=== PATIENT | male | born 1970 | race Caucasian/White ===

== ENCOUNTER 2024-07-23 22:29 | Emergency (ER) | payer SELFPAY ==
--- OUTSIDE RECORDS SUMMARY | 2024-07-23 22:33 | XMS REPORT | Continuity of Care Document ---
Author Name Unknown Address [address] [facility] [address] [place] [address] [facility] Address [address] [facility] [address] [place] [address] Care Team Providers Care Emergency Planning And Response Manager Name Role Phone PCP, PATIENT DOES NOT HAVE A Primary Care Physic pam Unavailable Trey Carrasco Attending Clinician Unavaila Rose Marie Cai Attending Clinician UnavailFUAD Luz Attending Clinician UnavailSharmaine Hooker Attending Clinician [phone] Dina Robison MD Attending Clinician [phone] Fuad Hurtado MD Attending Clinician Pedro Cortez Admitting Clinician UnavailPaulino Estrada Admitting Clinician Unavailable SHARMAINE HURLEY Admitting Clinician Unavailable FUAD HURTADO Admitting Clinician Unavailpadmini [place] Payers Payer Name Policy Type Policy Number Effective Date Expirati on Date Source [employer] PPO [id number] 2022 00:00:00 Allergies, Adverse Reactions, Alerts Allergy Name Allergy Type Status Severity Reaction(s) Onset Date Inactive Date Treating Clinician Comments Source No Known Allergie s DA Active U 04-10 00:00: 00 [facility] NO KNOWN ALLERGIE S Drug Class Active [facility] Social History Social Habit Start Date Stop Date Quantity Comments Source Gender identity [facility] Sexual orientation U [facility] Exposure to SARS-CoV-2 (event) 2023-01-24 00:00:00 2023-02-03 19:20:00 Not sure [facility] Sex Assigned At 1970 00:00:00 1970 00:00:00 [facility] Smoking Status Start Date Stop Date Source Tobacco smoking consumption unknown [facility] Medications Ordered Medication Name Filled Medication Name Start Date Stop Date Current Medication? Ordering Clinician Indication Dosage Frequency Signature (SIG) Comments Components Source morpHINE (4 mg/mL) injection 4 mg 04-10 05:00: 00 04-10 04:06 :00 No 4mg 4 mg, Slow IV Push, ONCE, 1 dose, On Mon04/10/23 at 0000, STAT [facility] FENTanyl PF (SUBLIMAZE (PF)) injection 50 mcg 04-10 05:00: 00 04-10 05:00 :00 No 50ug 50 mcg, Slow IV Push, ONCE, 1 dose, On Mon04/10/23 at 0000, KARSTEN [facility] HYDROcodone -acetaminop hen (NORCO) 10-325 mg tablet 1 tablet 04-10 00:45: 00 04-10 02:31 :00 No 1{tbl} 1 tablet, Oral, ONCE NOW, 1 dose, On Mon04/09/23 at 1945, Routine [facility] iopamidol (ISOVUE 370-500 mL) injection 70 mL 04-10 00:00: 00 04-10 00:00 :00 No [id number] 70mL 70 mL, Intravenou s, ONCE, 1 dose, On Mon04/09/23 at 1900, Routine [facility] vancomycin (VANCOCIN) 1,000 mg in NaCl 0.9% (NS) 250 mL VIAL-MATE IV piggyback 04-09 23:00: 00 04-10 03:30 :00 No 15mg/kg 1,000 mg (rounded from 1,089 mg = 15 mg/kg ?72.6 kg), IV Piggyback, ONCE, 1 dose, On Mon04/09/23 at 1800, Administer over 60 Minutes, 250 mL
Reas on for Anti-Infec tive: Empiric Therapy for Suspected Infection< br>Empiric Therapy Site: Skin / Soft tissue
Duration of therapy: 72 hours [facility] NaCl 0.9% (NS) bolus infusion 2,178 mL 04-09 23:00: 00 04-09 23:59 :00 No 30mL/kg at 999 mL/hr, 2,178 mL (30 mL/kg ?72.6 kg), IV Infusion, ONCE, 1 dose, On Mon04/09/23 at 1800, [facility] piperacilli n-tazobacta m (ZOSYN) 3.375 g in NaCl 0.9% (NS) 100 mL MINI-BAG 04-09 22:15: 00 04-09 23:59 :00 No 3.375g 3.375 g, IV Piggyback, ONCE, 1 dose, On Mon04/09/23 at 1715, Administer over 30 Minutes, 100 mL
Reas on for Anti-Infec tive: Empiric Therapy for Suspected Infection< br>Empiric Therapy Site: Skin / Soft tissue
Duration of therapy: 72 hours [facility] ondansetron (ZOFRAN (PF)) injection 4 mg 04-09 22:15: 00 04-09 22:15 :00 No 4mg 4 mg, Slow IV Push, ONCE, 1 dose, On Mon04/09/23 at 1715, KARSTEN [facility] morpHINE (4 mg/mL) injection 4 mg 04-09 22:15: 00 04-09 22:18 :00 No 4mg 4 mg, Slow IV Push, ONCE, 1 dose, On Mon04/09/23 at 1715, STAT [facility] HYDROcodone -acetaminop hen 5-325 mg tablet 5-26 00:00: 00 02-11 04:59 :00 No [id number] 1{tbl} Take 1-2 tablets by mouth every 6 (six) hours as needed for Pain (scale 7-10) for up to 7 days. Indication s: acute pain [facility] Vital Signs Vital Name Observation Time Observation Value Comments Prem reddy Systolic blood pressure 2023-04-10 03:37:00 125 mm[Hg] [facility] Diastolic blood pressure 2023-04-10 03:37:00 75 mm[Hg] [facility] Heart rate 2023-04-10 03:37:00 81 /min [facility] Respiratory rate 2023-04-10 03:37:00 18 /min [facility] Oxygen saturation in Arterial blood by Pulse oximetry 2023-04-10 03:37:00 95 /min [facility] Body temperature 2023-04-09 21:42:00 36.78 Adela [facility] Body weight 2023-04-09 21:42:00 72.576 kg [facility] Body weight 2023-02-04 00:21:00 72.576 kg [facility] Oxygen saturation in Arterial blood by Pulse oximetry 2023-02-04 00:21:00 98 /min [facility] Systolic blood pressure 2023-02-04 00:21:00 132 mm[Hg] [facility] Diastolic blood pressure 2023-02-04 00:21:00 95 mm[Hg] [facility] Heart rate 2023-02-04 00:21:00 90 /min [facility] Body temperature 2023-02-04 00:21:00 36.89 Adela [facility] Respiratory rate 2023-02-04 00:21:00 18 /min [facility] Procedures Procedure Date / Time Performed Performing Clinicia n Source US TESTICULAR TORSION 2023-04-10 00:35:13 Rita Hurley [facility] CT PELVIS W CONTRAST 2023-04-09 23:00:40 Sasha Hurley [facility] URINALYSIS 2023-04-09 22:54:00 Sharmaine Hurley [facility] BLOOD CULTURE SCREEN 2023-04-09 22:23:00 Sasha Hurley [facility] BLOOD CULTURE SCREEN 2023-04-09 22:11:00 Sasha Hurley [facility] COMP. METABOLIC PANEL ([id number]) 2023-04-09 22:07:00 Sharmaine Hurley [facility] CBC WITH DIFF 2023-04-09 22:07:00 Sharmaine Hurley [facility] LACTIC ACID WHOLE BLOOD 2023-04-09 22:07:00 Sharmaine Hurley [facility] CONSENT/REFUSAL FOR DIAGNOSIS AND TREATMENT 2023-04-09 21:35:46 Doctor Unassigned, [place] [facility] CONSENT/REFUSAL FOR DIAGNOSIS AND TREATMENT 2023-02-04 00:02:40 Doctor Unassigned, [place] [facility] Encounters Start Date/Time End Date/Time Encounter Type Admission Type Attending [facility] Facility Care Department Encounter ID Source 2023-04-11 02:40:00 2023-04-12 11:25:00 Inpatient EM Trey Carrasco [facility]01 [id number] 91 [facility] 2023-04-10 13:55:00 2023-04-11 01:58:00 Inpatient EM Rose Marie Mera [facility]01 [id number] 78 [facility] 2023-04-09 16:42:00 2023-04-10 00:46:00 Emergency X FUAD HURTADO [facility] ERT [id number] [facility] 2023-04-09 16:42:00 2023-04-10 00:46:00 Emergency Sharmaine Hurley [facility] [id number] [facility] 2023-02-03 19:23:00 2023-02-03 21:13:00 Emergency FUAD MOSES TXSANDI ERT [id number] [facility] 2023-02-03 19:23:00 2023-02-03 21:13:00 Emergency Fuad Hurtado [facility] 1..840.114 [id number] [id number] [facility] Results Test Description Test Time Test Comments Results Result Co mments Source CBC W/AUTO [id number] 07:04:00* Test Item Value Reference Range Interpretation Comme nts WHITE BLOOD CELL (test code = WBC) 5.9 x10 3/uL 4.5-11.0 RED BLOOD CELL (test code = RBC) 4.06 x10 6/uL 4.00-5.60 N HEMOGLOBIN (test code = HGB) 12.9 g/dL 12.5-16.9 N HEMATOCRIT (test code = HCT) 38.7 % 37.5-50.7 N MEAN CELL VOLUME (test code = MCV) 95.3 fL 81.0-99.0 N MEAN CELL HGB (test code = MCH) 31.8 pg 27.0-33.0 N MEAN CELL HGB CONCETRATION (test code = MCHC) 33.3 g/dL 33.0-37.0 N RED CELL DISTRIBUTION WIDTH CV (test code = RDW) 12.3 % 11.5-14.5 N RED CELL DISTRIBUTION WIDTH SD (test code = RDW-SD) 43.4 fL 37.0-54.0 N PLATELET COUNT (test code = PLT) 242 x10 3/uL 150-400 N MEAN PLATELET VOLUME (test c ode = MPV) 8.5 fL 7.0-9.0 N NEUTROPHIL % (test code = NT%) 72.0 % 56.0-77.0 N IMMATURE GRANULOCYTE % (test code = IG%) 0.2 % 0.0-2.0 N LYMPHOCYTE % (test code = LY%) 16.7 % 14.0-32.0 N MONOCYTE % (test code = MO%) 9.7 % 4.8-9.0 H EOSINOPHIL % (test code = EO%) 1.2 % 0.3-3.7 N BASOPHIL % (test code = BA%) 0.2 % 0.0-2.0 N NUCLEATED RBC % (test code = NRBC%) 0.0 % 0-0 N NEUTROPHIL # (test code = NT#) 4.24 x10 3/uL 2.0-7.6 N IMMATURE GRANULOCYTE # (test code = IG#) 0.01 x10 3/uL 0.00-0.03 N LYMPHOCYTE # (test code = LY#) 0.98 x10 3/uL 1.0-3.8 L MONOCYTE # (test code = MO#) 0.57 x10 3/uL 0.1-0.8 N EOSINOPHIL # (test code = EO#) 0.07 x10 3/uL 0.0-0.2 N BASOPHIL # (test code = BA#) 0.01 x10 3/uL 0.0-0.2 N NUCLEATED RBC # (test code = NRBC#) 0.00 x10 3/uL 0.0-0.1 N MANUAL DIFF REQUIRED (test c ode = MDIFF) NO BASIC METABOLIC [id number] 11:03:00* Test Item Value Reference Range Interpretation Comme nts SODIUM (test code = NA) 136 mEq/L 134-147 N POTASSIUM (test code = K) 4.1 mEq/L 3.4-5.0 N CHLORIDE (test code = CL) 107 mEq/L 100-108 N CARBON DIOXIDE (test code = CO2) 26 mEq/l 21-33 N ANION GAP (test code = GAP) 7 0-20 N GLUCOSE (test code = GLU) 81 mg/dL 70-110 N BLOOD UREA NITROGEN (test code = BUN) 15 mg/dL 7-18 N GLOMERULAR FILTRATION RATE (test code = GFR) 107.2 90-95 H The Glomerular Filtration Rate is a calculated parameterbased on serum Creatinine, patient age and sex. GFR valuesless than 60 mL/min/1.73 square meters are indicative ofChronic Kidney Disease. Values less than 15 mL/min/1.73square meters indicate Kidney failure. The calculation forGFR is based on the CKD-EPI (202) calculation. This formulais race indifferent and is the recommended formula for GFRby the National Kidney Foundation for Adults.The GFR will not calculate if the sex is unknown or if thepatient's age is <18 years. CREATININE (test code = CREAT) 0.8 mg/dL 0.6-1.3 N CALCIUM (test code = CA) 8.0 mg/dL 8.0-10.5 N HEPATIC FUNCTION [id number] 11:03:00* Test Item Value Reference Range Interpretation Comme nts TOTAL PROTEIN (test code = PROT) 6.6 g/dL 6.4-8.2 N ALBUMIN (test code = ALB) 3.50 g/dL 3.4-5.0 N BILIRUBIN TOTAL (test code = BILT) 0.60 mg/dL 0.0-1.0 N BILIRUBIN DIRECT (test code = BILD) 0.20 MG/DL 0.0-0.30 N SGOT/AST (test code = AST) 22 IUnit/L 15-37 N SGPT/ALT (test code = ALT) 16 IUnit/L 30-65 L ALKALINE PHOSPHATASE TOTAL ( test code = ALKP) 60 IUnit/L 20-125 N BILIRUBIN INDIRECT (test cod e = BILIND) 0.40 MG/DL TROP-I HIGH [id number] 11:03:00* Test Item Value Reference Range Interpretation Comme nts TROP-I HIGH SENSITIVITY (test code = TROPIHS) 11 ng/L 0-54 N CAUTION: Units o f the current test methodology (ng/L) differfrom the prior test methodology (ng/mL) by a factor of 1000. 99th Percentile Upper Reference Limit (URL): Females: 34 ng/LMales: 54 ng/L In order to distinguish acute elevations of high sensitivitytroponin from other clinical conditions, the FourthUniversal Definition of Myocardial Infarction stressesclinical assessment and the demonstration of a rise and/orfall in serial troponin results above the URL. These results were obtained using Siemens AtellCympel IM TnIHreagent. Results from different methodologies should not becompared to one another as quantitative results and URLs mayvary by method. LACTIC [id number] 10:49:00* Test Item Value Reference Range Interpretation Comme nts LACTIC ACID (test code = LACT) 0.7 mmol/L 0.4-1.9 N UA RFLX MICR CULT IF [id number] 10:44:00* Test Item Value Reference Range Interpretation Comme nts UA COLOR (test code = COLU) YELLOW YEL/STRAW UA APPEARANCE (test code = APPU) CLEAR CLEAR UA GLUCOSE DIPSTICK (test co de = DGLUU) NEGATIVE NEGATIVE UA BILIRUBIN DIPSTICK (test code = BILU) NEGATIVE NEGATIVE UA KETONE DIPSTICK (test cod e = KETU) NEGATIVE NEGATIVE UA SPECIFIC GRAVITY (test co de = SGU) 1.035 1.005-1.030 H UA BLOOD DIPSTICK (test code = KATHIA) NEGATIVE NEGATIVE UA PH DIPSTICK (test code = ALINA) 5.0 5.0-7.0 N UA PROTEIN DIPSTICK (test co de = PROU) NEGATIVE NEGATIVE UA UROBILINIOGEN DIPSTICK (test code = URO) 2.0 mg/dL 0.2-1.0 A UA NITRITE DIPSTICK (test co de = AGUSTÍN) NEGATIVE NEGATIVE UA LEUKOCYTE ESTERASE DIPSTI CK (test code = LEUU) 1+ NEGATIVE A UA WBC (test code = WBCU) 10-20 WBC/HPF 0-3 A UA RBC (test code = RBCU) 0-3 RBC/HPF 0-3 UA WBC NO REFLEX (test code = WBCUCL) 10-20 WBC/HPF 0-3 A UA BACTERIA (test code = BACU) NONE SEEN /HPF NONE SEEN UA SQUAMOUS CELLS (test code = SQU) 0-5 /HPF NONE SEEN UA MUCUS (test code = MUCU) TRACE /LPF NONE SEEN Indication for culture: RiskForSepsis-no oth srcSpecimen Description: CLEAN CATCHCBC W/AUTO [id number] 10:39:00* Test Item Value Reference Range Interpretation Comme nts WHITE BLOOD CELL (test code = WBC) 10.9 x10 3/uL 4.5-11.0 N RED BLOOD CELL (test code = RBC) 4.32 x10 6/uL 4.00-5.60 N HEMOGLOBIN (test code = HGB) 13.8 g/dL 12.5-16.9 N HEMATOCRIT (test code = HCT) 40.3 % 37.5-50.7 N MEAN CELL VOLUME (test code = MCV) 93.3 fL 81.0-99.0 N MEAN CELL HGB (test code = MCH) 31.9 pg 27.0-33.0 N MEAN CELL HGB CONCETRATION (test code = MCHC) 34.2 g/dL 33.0-37.0 N RED CELL DISTRIBUTION WIDTH CV (test code = RDW) 12.3 % 11.5-14.5 N PLATELET COUNT (test code = PLT) 223 x10 3/uL 150-400 N NEUTROPHIL % (test code = NT%) 85.8 % 56.0-77.0 H LYMPHOCYTE % (test code = LY%) 5.6 % 14.0-32.0 L NEUTROPHIL # (test code = NT#) 9.37 x10 3/uL 2.0-7.6 H LYMPHOCYTE # (test code = LY#) 0.61 x10 3/uL 1.0-3.8 L MANUAL DIFF REQUIRED (test c ode = MDIFF) NO RED CELL DISTRIBUTION WIDTH SD (test code = RDW-SD) 42.3 fL 37.0-54.0 N MEAN PLATELET VOLUME (test c ode = MPV) 8.0 fL 7.0-9.0 N IMMATURE GRANULOCYTE % (test code = IG%) 0.4 % 0.0-2.0 N MONOCYTE % (test code = MO%) 7.4 % 4.8-9.0 N EOSINOPHIL % (test code = EO%) 0.5 % 0.3-3.7 N BASOPHIL % (test code = BA%) 0.3 % 0.0-2.0 N NUCLEATED RBC % (test code = NRBC%) 0.0 % 0-0 N IMMATURE GRANULOCYTE # (test code = IG#) 0.04 x10 3/uL 0.00-0.03 H MONOCYTE # (test code = MO#) 0.81 x10 3/uL 0.1-0.8 H EOSINOPHIL # (test code = EO#) 0.06 x10 3/uL 0.0-0.2 N BASOPHIL # (test code = BA#) 0.03 x10 3/uL 0.0-0.2 N NUCLEATED RBC # (test code = NRBC#) 0.00 x10 3/uL 0.0-0.1 N - CT ABD PELVIS [id number] 00:00:00 [facility] 1970 Sex: M Name: NORA FREIRE [facility] [place] [facility] : 1970 Age/S: 52 / M [address] [place] [address] Blvd Unit #: [id number] Loc: [place] [address] Phys: Agapito Costello MD Acct: [id number] Dis Date: Status:REG ER PHONE #: [phone] Exam Date: 04/10/2023 1210 FAX #: [phone] Reason: SCROTAL SWELLING AND PAIN EXAMS: CPT CODE: [id number] CT ABD PELVIS W/CONT 89406 PROCEDURE INFORMATION: Exam: CT Abdo men And Pelvis With Contrast Exam date and time: 04/10/2023 12:13 PM Age: 52 years old Clinical indication: Other: Scrotal swelling and pain TECHNIQUE: Imaging protocol: Computed tomography of the abdomen and pelvis with contrast. Radiation optimization: All CT scans at this facility use at least one of these dose optimization techniques: automated exposure control; mA and/or kV adjustment per patient size (includes targeted exams where dose is matched to clinical indication); or iterative reconstruction. Contrast material: ISO; Contrast volume: 100 ml; Contrast route: INTRAVENOUS (IV); REPORTING DATA: Count of CT and Cardiac NM exams in prior 12 months: This patient has received 0 known CTs and 0 known cardiac nuclear medicine studies in the 12 months prior to the current study. COMPARISON: CR XR CHEST 1V 04/10/2023 9:40 AM FINDINGS: Liver: Normal. No mass. Gallbladder and bile ducts: Normal. No calcified stones. No ductal dilation. Pancreas: Normal. No ductal dilation. Spleen: Normal. No splenomegaly. Adrenal glands: Normal. No mass. Kidneys and ureters: Normal. No hydronephrosis. Stomach and bowel: There is stool throughout the colon which may be indication of constipation and could be correlated with the clinical history. The bowel is nonobstructed. Appendix: No evidence of appendicitis. Intraperitoneal space: Unremarkable. No free air. No significant fluid collection. Vasculature: There is a prominent vein/varicosity in the right inguinal region. There is no significantlymphadenopathy. Lymph nodes: See "Vasculature" finding. Urinary bladder: The bladder is normal. Reproductive: There are prostate calcifications present. Edema/swelling and ulceration of the right scrotum is present and could be correlated with the clinical exam. The testes are grossly normal. There is no hydrocele. Bones/joints: Bilateral hip arthroplasty for age beam hardening artifacts and obscures detail of the pelvis. 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 There is significant degenerative change of the L3-L4 and L4-L5 disc spaces. There is anS configured scoliosis. Soft tissues: There is no inguinal hernia. IMPRESSION: Edema/swelling and ulceration of the right scrotum is present and could be correlated with the clinical exam. The testesare grossly normal. There is no hydrocele. There is no significant lymphadenopathy within the inguinal region. There is a prominent right veins/varicosity. The bowel is nonobstructed. Stool seen throughout the colon which may be indication of constipation can be correlated with the clinical history. Bilateral hip arthroplasty is present creating beam hardening artifacts obscuring detail in the pelvis. at 1337 Reported and signed by: Harley Ward M.D. CC: Agapito Costello MD Technologist:Stephanie Horan RT(R); Yolanda ScCTDI: DLP: Trnscb Date/Time: 04/10/2023 (6001) [id number] Orig Print D/T: S: 04/10/2023 (3218) PAGE2 Signed Report- XR CHEST 1 [id number] 00:00:00 [facility] 1970 Sex: M FAX: Agapito Costello [place]: St: REG Name: NORA FREIRE [facility] : 1970 Age/S: 52/M [address] [place] [address] Unit #: [id number] Loc: [place] [address] Phys: Agapito Costello MD Acct: [id number] Dis Date: Status: REG ER PHONE #: [phone] Exam Date: 04/10/2023 0938 FAX #: [phone] Reason: testicular pain, cellulitis, sepsis EXAMS: CPT CODE: [id number] XR CHEST 1 V 37393 PROCEDURE INFORMATION: Exam: XR Chest Exam date and time: 04/10/2023 9:40 AM Age: 52 years old Clinical indication: Other: Testicular pain, cellulitis, sepsis TECHNIQUE: Imaging protocol: Radiologic exam of the chest. Views: 1 view. COMPARISON: No relevant prior studies available. FINDINGS: Lungs: Calcified granulomata suspected in left lung. No confluent pulmonary infiltrates are seen. Pleural spaces: No pleural effusion. No pneumothorax. Heart/Mediastinum: Cardiomediastinal silhouette is normal insize. Bones/joints: No acute bony finding. IMPRESSION: No evidence for acute cardiopulmonary disease. at 1142 Reported and signed by: Maxwell Salas M.D. CC: Agapito Costello MD Technologist: RT Shanelle(R) Trnscrd Date/Time/By: 04/10/2023 (1142) : By: [email or web address] Orig Print D/T: S: 04/10/2023 (1142) PAGE 1 Signed ReportCBC WITH [id number] 22:45:22* Test Item Value Reference Range Interpretation Comme nts WBC (test code = 6690-2) 19.54 See_Comment H [Automated message] The system which generated this result transmitted reference range: 4.20 - 10.70 10*3/?L. The reference range was not used to interpret this result as normal/abnormal. RBC (test code = 789-8) 4.46 See_Comment [Automated message] The system which generated this result transmitted reference range: 4.26 - 5.52 10*6/?L. The reference range was not used to interpret this result as normal/abnormal. HGB (test code = 718-7) 14.3 g/dL 12.2-16.4 HCT (test code = 4544-3) 40.3 % 38.4-49.3 MCV (test code = 787-2) 90.4 fL 81.7-95.6 MCH (test code = 785-6) 32.1 pg 26.1-32.7 MCHC (test code = 786-4) 35.5 g/dL 31.2-35.0 H RDW-SD (test code = 70386-4) 40.4 fL 38.5-51.6 RDW-CV (test code = 788-0) 12.3 % 12.1-15.4 PLT (test code = 777-3) 221 See_Comment [Automated message] The system which generated this result transmitted reference range: 150 - 328 10*3/?L. The reference range was not used to interpret this result as normal/abnormal. MPV (test code = 79461-2) 8.0 fL 9.8-13.0 L NRBC/100 WBC (test code = 4583734716) 0.0 See_Comment [Automated message] The system which generated this result transmitted reference range: 0.0 - 10.0 /100 WBCs. The reference range was not used to interpret this result as normal/abnormal. NRBC x10^3 (test code = 6385499148) See_Comment [Automated message] The system which generated this result transmitted reference range: 10*3/?L. The reference range was not used to interpret this result as normal/abnormal. GRAN MAT (NEUT) % (test code = 770-8) 81.9 % IMM GRAN % (test code = 2702541024) 0.50 % LYMPH % (test code = 736-9) 8.3 % MONO % (test code = 5905-5) 9.0 % EOS % (test code = 713-8) 0.1 % BASO % (test code = 706-2) 0.2 % GRAN MAT x10^3(ANC) (test code = 4804132090) 16.01 10*3/uL 1.99-6.95 H IMM GRAN x10^3 (test code = 3609854334) 0.09 10*3/uL 0.00-0.06 H LYMPH x10^3 (test code = 731-0) 1.63 10*3/uL 1.09-3.23 MONO x10^3 (test code = 742-7) 1.76 10*3/uL 0.36-1.02 H EOS x10^3 (test code = 711-2) 0.06-0.53 L BASO x10^3 (test code = 704-7) 0.03 10*3/uL 0.01-0.09 Lab Interpretation (test code = 98112-4) Abnormal [facility]. METABOLIC PANEL (96436)2023-04-09 22:28:23* Test Item Value Reference Range Interpretation Comme nts NA (test code = 0597887104) 129 mmol/L 135-145 L K (test code = 6892703007) 4.0 mmol/L 3.5-5.0 CL (test code = 9411602539) 97 mmol/L 98-108 L CO2 TOTAL (test code = 1896657422) 27 mmol/L 23-31 AGAP (test code = 4613501043) 5 2-16 BUN (test code = 9358282109) 19 mg/dL 7-23 GLUCOSE (test code = 1923589827) 106 mg/dL 70-110 CREATININE (test code = 7742502969) 0.86 mg/dL 0.60-1.25 TOTAL BILI (test code = 3804602454) 1.0 mg/dL 0.1-1.1 CALCIUM (test code = 7995826245) 8.4 mg/dL 8.6-10.6 L T PROTEIN (test code = 9267928637) 7.0 g/dL 6.3-8.2 ALBUMIN (test code = 9751779480) 3.8 g/dL 3.5-5.0 ALK PHOS (test code = 9793471392) 56 U/L 34-122 ALTv (test code = 1742-6) 23 U/L 5-50 AST(SGOT) (test code = 0444120548) 27 U/L 13-40 eGFR (test code = 7229885617) 93.8 mL/min/1.73m2 MADDIE (test code = MADDIE) Association of Glomerular Filtration Rate (GFR) and Staging of Kidney Disease* + --+ --+ ------+| GFR (mL/min/1.73 m2) ?| With Kidney Damage ?| ?Without Kidney Damage+ --------+ --------+ +| ?>90 ?| ?Stage one ?| ? Normal ?+ ---+ ---+ -------+| ?60-89 ?| ?Stage two ?| ? Decreased GFR ? + --+ --+ ------+| ?30-59 ?| ?Stage three ?| ? Stage three ? + --+ --+ ------+| ?15-29 ?| ?Stage four ? | ? Stage four ?+ ---+ ---+ -------+| ?<15 (or dialysis) ? ?| ?Stage five ? | ? Stage five ?+ ---+ ---+ -------+ *Each stage assumes the associated GFR level has been in effect for at least three months. ?Stages 1 to 5, with or without kidney disease, indicate chronic kidney disease. Notes: Determination of stages one and two (with eGFR >59mL/min/1.73 m2) requires estimation of kidney damage for at least three months as defined by structural or functional abnormalities of the kidney, manifested by either:Pathological abnormalities or Markers of kidney damage (including abnormalities in the composition of the blood or urine or abnormalities in imaging tests). Lab Interpretation (test code = 80247-5) [facility] [id number] 22:14:51* Test Item Value Reference Range Interpretation Comme nts LACTIC ACID (test code = 7380804864) 1.01 mmol/L 0.50-2.20 Lab Interpretation (test cod e = 32891-4) Normal [facility] Notes Date/Time Note Provider Source 2023-04-12 14:13:00 [facility] Hospitalist Discharge Summary REPORT#:[id number] REPORT STATUS: Signed DATE:04/12/23 TIME: 1413 PATIENT: NORA FREIRE UNIT #: [id number] ROOM/BED: [place] [address] : 71 AGE: 52 SEX: M ATTEND: Trey Carrasco MD ADM AUTHOR: Trey Carrasco MD * ALL edits or amendments must be made on the electronic/computer document * General Information Problem List/A P: 1. Cellulitis of scrotum 2. Drug abuse and dependence A P -Avoid narcotic, benzos and sedative medications Discharge date: 04/12/23 Discharge diagnosis: scrotal cellulitis Hospital course: 52-year-old male with history of polysubstance abuse with recent admission for scrotal cellulitis status post I D, signed out AMA and returned following morning for continued treatment of scrotal cellulitis. He was evaluated by urology who did not recommend any further surgical interventions. ID evaluated patient and recommended 10-day course of Keflex. Patient to continue local wound care and follow-up with PCP in 1 week Med Rec Med Rec Discharge meds: Start taking the following new medications: CEPHALEXIN (KEFLEX) 750 MG CAP 1,000 MILLIGRAM ORAL THREE TIMES A DAY. Days = 10 Qty = 30 No Refills Objective Head/Eyes: atraumatic, clear cornea, EOMI, normal conjunctiva/sclera, normocephalic ENT: moist mucosal membranes Neck: full range of motion, no bruit/NL carotids, no JVD Cardiovascular: normal heart sounds, regular rate rhythm Respiratory: aerating well, clear to auscultation, symmetric expansion, no distress Abdomen: non-tender, normal bowel sounds, soft, no distention, no guarding Genitourinary: testicular tenderness, testicular edema and erythema. Evidence of I D on exam Extremities: moves all, no cyanosis, no edema Neuro/DUPLICATE MAKER: disoriented, normal speech, no motor deficits, no sensory deficits Skin: no rash Discharge Instructions PCP Discharge to: Home/Self Care Additional Discharge Routines: PCP Follow-Up Diet: Resume Home Diet/Feeds Follow-up Appointments PCP follow-up: PCP: No Primary or Family Physician PCP follow up timeframe: In 5 days Special instructions: CALL OFFICE FOR APPOINTMENT Consulting provider 1: Provider 1: Nii Lim MD Specialty: UROLOGY Consult follow up timeframe: In 1-2 wks/OR ADVISED Special instructions: CALL OFFICE FOR APPOINTMENT Consulting provider 2: Provider 2: Julian Sibley MD Specialty: INFECTIOU DISEASE Follow up timeframe: ADVISED at 1415 RPT #:[id number] END OF REPORT [facility] 2023-04-11 18:34:00 [facility] ([facility]) Infect Disease Consult Note REPORT#:[id number] REPORT STATUS: Signed DATE:04/11/23 TIME: 1833 PATIENT: NORA FREIRE UNIT #: [id number] ROOM/BED: [place] [id number] : 71 AGE: 52 SEX: M ATTEND: Trey Carrasco MD ADM AUTHOR: Julian Sibley MD * ALL edits or amendments must be made on the electronic/computer document * History of Present Illness Requesting Clinician: Dr Cortez Reason for consult: Scrotal abscess Chief complaint: Inguinal scrotal pain HPI: This is a 52-year-old male patient with history of drug use who was recently admitted to [facility] with scrotal cellulitis and abscess and underwent I D. Patient left AMA from there and came here because he felt he was not treated well. Here he has been seen by urology and no further I D is planned. Patient gives a past medical history of hypospadias but denies any urinary tract infections History - Adult longitudinal Past surgical history: Reports: Hip procedure. Additional surgical history: Hip surgery Alcohol use: Alcohol use Drug use: Meth/amphetamines Smoking status for patients 13 years old or older: Current every day smoker Date last smoked: 04/10/23 Allergies: Coded Allergies: No Known Allergies (04/10/23) Review of Systems Free Text ROS Notes Free Text ROS Notes: 14 systems reviewed and negative apart from pertinent points in the HPI Objective Physical Exam General appearance: alert, awake Head/Eyes: atraumatic, clear cornea ENT: moist mucosal membranes, normal dentition Neck: full range of motion, non-tender Cardiovascular: normal heart sounds, regular rate rhythm Respiratory: clear to auscultation, aerating well Abdomen: non-tender, normal bowel sounds Extremities: moves all, normal capillary refill Results Findings/Data: Laboratory Tests 04/11 458 Chemistry Sodium (134 - 147 mEq/L) 138 Potassium (3.4 - 5.0 mEq/L) 4.1 Chloride (100 - 108 mEq/L) 110 H Carbon Dioxide (21 - 33 mEq/l) 25 Anion Gap (0 - 20) 7 BUN (7 - 18 mg/dL) 12 Creatinine (0.6 - 1.3 mg/dL) 0.7 Glomerular Filtr Rate (90 - 95) 111.6 H Glucose (70 - 110 mg/dL) 94 Calcium (8.0 - 10.5 mg/dL) 7.9 L Laboratory Tests 04/11 458 Hematology WBC (4.5 - 11.0 x10 3/uL) 5.9 RBC (4.00 - 5.60 x10 6/uL) 4.06 Hgb (12.5 - 16.9 g/dL) 12.9 Hct (37.5 - 50.7 %) 38.7 MCV (81.0 - 99.0 fL) 95.3 MCH (27.0 - 33.0 pg) 31.8 MCHC (33.0 - 37.0 g/dL) 33.3 RDW (11.5 - 14.5 %) 12.3 Plt Count (150 - 400 x10 3/uL) 242 MPV (7.0 - 9.0 fL) 8.5 Neut % (Auto) (56.0 - 77.0 %) 72.0 Lymph % (Auto) (14.0 - 32.0 %) 16.7 Cochran % (Auto) (4.8 - 9.0 %) 9.7 H Eos % (Auto) (0.3 - 3.7 %) 1.2 Baso % (Auto) (0.0 - 2.0 %) 0.2 Neut # (Auto) (2.0 - 7.6 x10 3/uL) 4.24 Lymph # (Auto) (1.0 - 3.8 x10 3/uL) 0.98 L Cochran # (Auto) (0.1 - 0.8 x10 3/uL) 0.57 Eos # (Auto) (0.0 - 0.2 x10 3/uL) 0.07 Baso # (Auto) (0.0 - 0.2 x10 3/uL) 0.01 Abs Immat Gran (auto) (0.00 - 0.03 x10 3/uL) 0.01 Add Manual Diff NO Immature Gran % (0.0 - 2.0 %) 0.2 Nucleated RBC % (0 - 0 %) 0.0 Nucleated RBCs # (Man) (0.0 - 0.1 x10 3/uL) 0.00 Diagnosis, Assessment Plan Problem List/A P: 1. Cellulitis of scrotum 2. Drug abuse and dependence Free Text DxA P Notes Free text DxA P notes: Continue empiric antibiotics We will log into the [facility] system to check culture data Likely discharge tomorrow on orals at 1836 RPT #:[id number] END OF REPORT [facility] 2023-04-11 18:11:00 [facility] ([facility]) Clinical Note REPORT#:[id number] REPORT STATUS: Signed DATE:04/11/23 TIME: 1811 PATIENT: NORA FREIRE UNIT #: [id number] ROOM/BED: [place] [id number] : 71 AGE: 52 SEX: M ATTEND: Trey Carrasco MD ADM AUTHOR: Julian Sibley MD * ALL edits or amendments must be made on the electronic/computer document * Clinical Note Note: Seen and examined consult to follow at 1812 RPT #:[id number] END OF REPORT [facility] 2023-04-11 13:58:00 [facility] ([facility]) Clinical Note REPORT#:[id number] REPORT STATUS: Signed DATE:04/11/23 TIME: 1358 PATIENT: NORA FREIRE UNIT #: [id number] ROOM/BED: [place] [address] : 71 AGE: 52 SEX: M ATTEND: Trey Carrasco MD ADM AUTHOR: Trey Carrasco MD * ALL edits or amendments must be made on the electronic/computer document * Clinical Note Note: Patient seen and examined. Admitted overnight for scrotal cellulitis. Continue IV antibiotics. Urology and ID consulted at 1358 RPT #:[id number] END OF [facility]PORT [facility] 2023-04-11 11:51:00 [id number] [address] PATIENT NAME: NORA FREIRE ADMIT DATE: 04/11/23 ACCOUNT NO: [id number] ROOM NO: [facility] AGE: 52 REPORT TYPE: CONSULTATION REPORT SEX: M ADMITTING PHYSICIAN:Pedro Cortez MD ATTENDING PHYSICIAN:Trey Carrasco MD CONSULTATION DATE:04/11/2023 REASON FOR CONSULTATION: History of scrotal abscess. HISTORY OF PRESENT ILLNESS: A 52-year-old gentleman who was admitted with a history of scrotal cellulitis after an I and D done at [facility] day before yesterday. He states with his partner that they did not like the way that they were treated and decided to leave AMA. This was after the incision and drainage. PAST MEDICAL HISTORY: Scrotal abscess, status post I and D; drug abuse. PAST SURGICAL HISTORY: Hip surgery, scrotal I and D. SOCIAL HISTORY: Alcohol use, methamphetamine use. Every day smoker. HOME MEDICATIONS: None. ALLERGIES: NONE. FAMILY HISTORY: Noncontributory. REVIEW OF SYSTEMS: A 14-point review of system was obtained and is negative. The patient's partner is at the bedside states that the scrotum looks much better. PHYSICAL EXAMINATION: VITAL SIGNS: Afebrile, vital signs stable. GENERAL: Alert, in no acute distress, nontoxic. HEENT: Normocephalic. NECK: Supple. HEART: Regular rate and rhythm. LUNGS: Respirations unlabored. GENITOURINARY: The patient has an I and D site on the right side of the hemiscrotum, more superior location. There is minimal erythema. There is no drainage. LABORATORY DATA: White blood cell count 5.9, hemoglobin 12.9, platelets 242. Creatinine 0.7. IMAGING DATA: There was a CT of the abdomen and pelvis that we reviewed in detail. There is the edema of the right hemiscrotum. No obvious drainable fluid collection. There is a small amount of air, but this is consistent with PATIENT NAME: NORA FREIRE the I and D site, so I do not see any concern for Demetris's gangrene. ASSESSMENT AND PLAN: A 52-year-old male status post incision and drainage at an outside facility. This appears to be healing well. No active drainage. No new fluid collection. From urology standpoint, he can be discharged on oral clindamycin after receiving a few rounds of IV antibiotics here in the hospital. Dictated By: Nii Lim MD Date Dictated: 04/11/2023 11:51:54 Date Transcribed: 04/11/2023 13:25:14 FORD Receipt ID: [id number] Authenticated and Edited by Nii Lim MD On 04/18/23 1:41:13 PM at 0142 PATIENT NAME: NORA FREIRE [facility] 2023-04-11 06:00:00 [facility] Prog.Note-Vancomycin REPORT#:[id number] REPORT STATUS: Signed DATE:04/11/23 TIME: 06 PATIENT: NORA FREIRE UNIT #: [id number] ROOM/BED: [place] [address] : 71 AGE: 52 SEX: M ATTEND: Pedro Cortez MD ADM AUTHOR: Sadia Sampson [facility] * ALL edits or amendments must be made on the electronic/computer document * Vancomycin Vancomycin Medication Therapy Goal: trough 10-15 mcg/mL Indication for treatment: CELLULITIS Current therapy: Rocephin 1000mg Q24H 04/11 Vanco 1000mg + 750mg 04/10 @ 10.00 1700 Vanco 1250mg 04/10 @ 2355 Day of therapy: 2 Weight: Actual weight (kg): 70.5 VS and I/O: Vital Signs Date Temp Pulse Resp B/P B/P Mean Pulse Ox FiO2 04/11 36.7 48-59 16 111-112/70-73 83.3-86 96-97 72 hours ending at 04/11 1900 Intake Total Output Total Balance Patient 70.455 kg Weight Weight Stated/Rep orted Measuremen t Method 72 Hour I O Total 04/11 Intake Total Output Total Balance Drug admin history: Lab Lab Level SCr Info Marketing Summer Intern Med Dose Interaction/Dialysis Date/Time Date/Time Notes: Treatment plan: consult, change regimen Regimen: Vancomycin 1000mg Q12H Initiate Regimen: Yes Rationale: HPI Chief complaint: Patient left AMA and returned back to the emergency room about an hour and a half later. PCP: PCP: No Primary or Family Physician HPI: 52-year-old man with prior history of methamphetamine abuse and has been admitted yesterday afternoon with scrotal cellulitis status post I D that was done at [facility] the day before yesterday. He stated that he was discharged home without any antibiotic that is possible that he may have left AMA the same way he did earlier this morning. Patient was started on antibiotics but decided to leave AMA earlier this morning. Patient's significant other that is at the bedside states that they never left the premises of the hospital; she states that he just went to the parking lot and she convinced him to return to the hospital. Both of them are very lethargic at this time. When I asked the patient why he left he stated that he was confused. Currently denies any complaints. I am concerned that the patient may be leaving AMA to do drugs in the parking lot which both the patient and significant other denied. Informant/historian: patient, family/other at bedside, prior records Pharmacy was consulted to dose Vancomycin for cellulitis. A/P:04/11 * Tmax 36.7, WBC 10.9, BUN/Scr 15/0.8, est CRCL > 100 ml/min, UOP: none documented. * Microbiology: Blood cultures pending, CT-abdominal: Edema/swelling and ulceration of right scrotum. * Plan: Day 2. PT received a total loading dose of 1750 mg x1 dose and a maintenace dose of Vanco 1250mg yesterday. New Dose ordered (15mg/kg) for 1000 mg vancomycin scheduled Q12h. Draw Vanco trough level @ steady state tonight @ 2300, Goal trough 10-15 mcg/mL. * Pharmacy will continue to follow-up. at 0629 RPT #:[id number] END OF REPORT [facility] 2023-04-11 04:04:00 [facility] ([facility]) Hospitalist History Physical REPORT#:[id number] REPORT STATUS: Signed DATE:04/11/23 TIME: 0404 PATIENT: NORA FREIRE UNIT #: [id number] ROOM/BED: [place] [address] : 71 AGE: 52 SEX: M ATTEND: Pedro Cortez MD ADM AUTHOR: Pedro Cortez MD * ALL edits or amendments must be made on the electronic/computer document * History of Present Illness HPI Chief complaint: Patient left AMA and returned back to the emergency room about an hour and a half later. PCP: PCP: No Primary or Family Physician HPI: 52-year-old man with prior history of methamphetamine abuse and has been admitted yesterday afternoon with scrotal cellulitis status post I D that was done at [facility] the day before yesterday. He stated that he was discharged home without any antibiotic that is possible that he may have left AMA the same way he did earlier this morning. Patient was started on antibiotics but decided to leave AMA earlier this morning. Patient's significant other that is at the bedside states that they never left the premises of the hospital; she states that he just went to the parking lot and she convinced him to return to the hospital. Both of them are very lethargic at this time. When I asked the patient why he left he stated that he was confused. Currently denies any complaints. I am concerned that the patient may be leaving AMA to do drugs in the parking lot which both the patient and significant other denied. Informant/historian: patient, family/other at bedside, prior records History Past Medical Surgical Hx Patient History: 1. Cellulitis of scrotum 2. Drug abuse and dependence Additional surgical history: Hip surgery Social History Alcohol use: Alcohol use Drug use: Meth/amphetamines Smoking status for patients 13 years old or older: Current every day smoker Medication/Allergy-Vaccine Hx Medications: None Allergies: Coded Allergies: No Known Allergies (04/10/23) Pt reports no significant: past surgical history, family history Review of Systems Constitutional: Denies: chills, fatigue, fever, generalized weakness, lethargy, malaise, recent wt loss, other. All systems rev neg: except as noted OBJECTIVE VS/I O: Vital Signs Date Temp Pulse Resp B/P B/P Mean Pulse Ox FiO2 04/11 98.0-98.1 48-59 16 111-112/70-73 83.3-86 96-97 Last Documented: Result Date Time Pulse Ox 97 04/11 303 B/P 111/70 04/11 030 B/P Mean 83.3 04/11 303 Temp 98.1 04/11 303 Pulse 48 04/11 303 O2 Delivery Room air 04/11 217 Resp 16 04/11 217 24 hour I O ending at 0700: 04/11 0700 04/10 1900 Intake Total Output Total Balance Patient 70.455 kg Weight Weight Stated/Reported Measurement Method Patient Weight and BMI Weight (kg): 70.455 BMI: 22.3 General appearance: lethargic Head/Eyes: atraumatic, clear cornea, EOMI, normal conjunctiva/sclera, normocephalic ENT: moist mucosal membranes Neck: full range of motion, no bruit/NL carotids, no JVD Cardiovascular: normal heart sounds, regular rate rhythm Respiratory: aerating well, clear to auscultation, symmetric expansion, no distress Abdomen: non-tender, normal bowel sounds, soft, no distention, no guarding Genitourinary: testicular tenderness, testicular edema and erythema. Evidence of I D on exam Extremities: moves all, no cyanosis, no edema Neuro/DUPLICATE MAKER: disoriented, normal speech, no motor deficits, no sensory deficits Skin: no rash Diagnosis, Assessment Plan Problem List/A P: 1. Cellulitis of scrotum Continue IV antibiotics. -Continue vancomycin and will add Rocephin -Urology consult 2. Drug abuse and dependence I am concerned the patient left AMA with his significant other to do drugs in the parking because both return to the hospital lethargic. We will go ahead and order urine drug screen. -Avoid narcotic, benzos and sedative medications Plan discussed with: patient, spouse/partner Resuscitation discussion: Discussed with: patient Code status: full code at 0535 RPT #:[id number] END OF REPORT [facility] 2023-04-11 02:38:00 [facility] ([facility]) EMERGENCY PROVIDER REPORT REPORT#:[id number] REPORT STATUS: Signed DATE:04/11/23 TIME: 0238 PATIENT: NORA FREIRE UNIT #: [id number] ROOM/BED: [place] [address] AGE: 52 SEX: M PCP PHYS: No Primary or Family Physician SERVICE AUTHOR: Jassi Aiken APRNNP * ALL edits or amendments must be made on the electronic/computer document * Jassi Aiken 04/11/23 0238: HPI-General Illness Free Text HPI Notes Free Text HPI Notes 52-year-old male with PMH of meth abuse presents to the ER for readmission after noting that he signed out AMA approximately 25 minutes ago. Patient was admitted for scrotal cellulitis after having I D procedure performed 2 days ago with continued erythema and induration of his scrotum. Notes that he woke up from his sleep and "freaked out" and left the hospital. He notes that he has continued scrotal pain but denies any new or worsening symptoms since leaving 25 minutes ago. General Initial Greet Date/Time 04/11/23215 Presentation Chief Complaint __ (scrotal pain) Hx Obtained From Patient, Prior medical records Review of Systems ROS Statements All systems rev neg except as marked. Free Text ROS Notes Free Text ROS Notes Scrotal pain, nausea Past Medical History - Adult Stated Complaint ABSCESS SCROTUM, PT AMA EARLIER Allergies Coded Allergies: No Known Allergies (04/10/23) Calculated Suicide Risk (nurs) No risk Past Surgical History: Reports: Hip procedure. Drug Use Meth/amphetamines Smoking status for patients 13 years old or older: Current every day smoker Physical Exam Vital Signs Vital Signs First Documented: Result Date Time Pulse Ox 96 04/117 B/P 112/73 04/11 0217 B/P Mean 86 04/11 217 O2 Delivery Room air 04/11 217 Temp 36.7 04/11 217 Pulse 59 04/11 0217 Resp 16 04/11 217 Last Documented: Result Date Time Pulse Ox 96 04/11 0217 B/P 112/73 04/11 0217 B/P Mean 86 04/11 217 O2 Delivery Room air 04/11 217 Temp 36.7 04/11 217 Pulse 59 04/11 0217 Resp 16 04/11 217 Review of Vital Signs Reviewed Free Text PE Notes Free Text PE Notes Gen: Well appearing, appears comfortable, cooperative Head: Normocephalic Eyes: Pupils midline, sclera NL Throat: Moist mucous membranes, handling secretions. Airway patent. Neck: supple Lungs: CTA all lobes. Respirations NL. No wheezing, No rhonchi, No dyspnea. No stridor or accessory muscle use. Heart/Chest: Regular rhythm, rate. No murmurs. Ext: no obvious deformity Neuro: Asleep but easily alert, speech NL for age, behavior age-appropriate. Skin: color NL, normal temperature, intact, no visible rashes Interpretation Diagnostics Lab Results Interpretation Considerations Reviewed prior records Point of Care Testing Pulse Oximetry Pulse Ox % 97 On: Room air Interpretation Interpreted by me, Pulse oximetry normal Time 0324 Re-Evaluation MDM Free Text MDM Notes Free Text MDM Notes Review of EHR notes patient presented to the ER yesterday and underwent serum labs, blood cultures, urinalysis, chest x-ray and CT of the abdomen/pelvis. He was ultimately admitted for scrotal cellulitis after having a scrotal I D drained the day prior. There was no ulceration or gas to indicate Demetris's gangrene or other acute findings. He received IV vancomycin and Zosyn, was evaluated by the hospitalist and admitted. Patient noting that he left 30 minutes ago but is now wishing to continue his inpatient care and stay. Additional serum labs/work-up is not indicated at this time. Will contact hospitalist and readmit. Patient Discharge Departure Vital Signs/Condition Vital Signs First Documented: Result Date Time Pulse Ox 96 04/11 0217 B/P 112/73 04/11 0217 B/P Mean 86 04/11 0217 O2 Delivery Room air 04/11 217 Temp 36.7 04/11 0217 Pulse 59 04/11 0217 Resp 16 04/11 217 Last Documented: Result Date Time Pulse Ox 96 04/11 0217 B/P 112/73 04/11 0217 B/P Mean 86 04/11 0217 O2 Delivery Room air 04/11 217 Temp 36.7 04/11 0217 Pulse 59 04/11 0217 Resp 16 04/11 217 All vital signs available at the time of this entry have been reviewed. Condition Stable Clinical Impression Clinical Impression Primary Impression: Cellulitis of scrotum Disposition Decision Hospitalize Hosp Physician Name Pedro Cortez MD Hosp Physician Hospitalist Request Time 023 Request Date 04/11/23 )( Accepts Hospitalization Yes )( Reason for Hospitalization scrotal cellulitis )( Accepted Time 238 )( Accepted Date 04/11/23 Call Information will see patient Discharge/Care Plan Counseled Regarding Need for admission Debbie Monzon 04/11/23 2311: Patient Discharge Departure Supervising Physician Note MidLv Saw Pt Alone . I was available for consultation as needed at all times during the patient's visit in the emergency department. at 0327 at 2312 RPT #:[id number] END OF REPORT [facility] 2023-04-10 15:44:00 [facility]) Pharmacy Prog.Note-Vancomycin REPORT#:[id number] REPORT STATUS: Signed DATE:04/10/23 TIME: 1544 PATIENT: NORA FREIRE UNIT #: [id number] ROOM/BED: [place] [address] : 71 AGE: 52 SEX: M ATTEND: Rose Marie Mera MD ADM AUTHOR: Gaurav Jin [facility] * ALL edits or amendments must be made on the electronic/computer document * Vancomycin Vancomycin Medication Therapy Goal: trough 10-15 mcg/mL Indication for treatment: SSTI Day of therapy: 1 VS and I/O: Vital Signs Date Temp Pulse Resp B/P B/P Mean Pulse Ox FiO2 04/10 36.6 70 18 108/67 81.0 99 Labs: Laboratory Test : 04/10 101 Chemistry BUN (7 - 18 mg/dL) 15 Creatinine (0.6 - 1.3 mg/dL) 0.8 Hematology WBC (4.5 - 11.0 x10 3/uL) 10.9 Microbiology: 04/10 101 URINE: Urine Culture - WKST 04/10 101 BLOOD: Blood Culture - RECD 04/10 101 BLOOD: Blood Culture - RECD Drug admin history: Lab Lab Level SCr Info Marketing Summer Intern Med Dose Interaction/Dialysis Date/Time Date/Time Notes: Treatment plan: consult, initiation of therapy Regimen: 52 year old male, med history significant for, presents from the ED complaining of scrotal swelling. Pharmacy is consulted to dose vancomycin. Consulting Provider: Rose Marie Mera MD Indication: Scrotal cellulitis Goal Trough: 10-15 mcg/mL 04/10 A/P: Labs/Vitals: Afebrile, HDS on RA, WBC 10.9 Renal: BUN/SCr 15/0.8, eCrCl > 100 mL/min, UOP n/a Micro: 04/10 BCx and UCx - PENDING Imagin/31 abd/pelvis CT - Edema/swelling and ulceration of the right scrotum Plan: Day 1. Pt to receive a total loading dose of 1750 mg x1 dose. Will follow with 1250 mg vancomycin scheduled q12h. Plan for trough level once at steady state. Goal trough 10-15 mcg/mL. Pharmacy will continue to follow and monitor. Thank you for this consult. at 1557 RPT #:[id number] END OF REPORT [facility] 2023-04-10 14:20:00 [facility] Hospitalist History Physical REPORT#:[id number] REPORT STATUS: Signed DATE:04/10/23 TIME: 1420 PATIENT: NORA FREIRE UNIT #: [id number] ROOM/BED: [place] [address] : 71 AGE: 52 SEX: M ATTEND: Rose Marie Mera MD ADM AUTHOR: Rose Marie Mera MD * ALL edits or amendments must be made on the electronic/computer document * History of Present Illness HPI Chief complaint: Scrotal swelling PCP: PCP: No Primary or Family Physician HPI: 52 year old male, med history significant for meth abuse, presents from the ED complaining of scrotal swelling, s/p I D at [facility] yesterday. Patient reports he first noticed redness to hair follicle to scrotal region, with progressively spread throughout scrotal region, with swelling, and severe pain. He initially presented to [facility] and imaging reportedly revealed scrotal abscess that was subsequently drained at bedside. He somehow was reportedly discharged without his antibiotics, which he was told he would receive. Unclear how this occurred, however, patient confides he has been feeling "off" since he has stopped using meth x4 days ago. He normally uses daily. In ED, scrotal region is tender, imaging significant for cellulitis with area of incision noted for recent drainage remarked upon. He is non-toxin in appearance, labs showed no acute concerns. He received IV vancomycin and zosyn in the ED. Urology was consulted and patient is admitted for further management. History Past surgical history: Reports: Hip procedure. Drug use: Meth/amphetamines Smoking status for patients 13 years old or older: Former Smoker Medication/Allergy-Vaccine Hx Medications: Current Hospital Medications: Anti-Infective Agents Sig/Marquis Start time Last Medication Dose Route Stop Time Status Admin Piperacillin Sod/ 3.375 GM X1ED STA 04/10 936 DC 04/10 Tazobactam Sod IV 04/10 1005 1040 (ZOSYN 3.375GM) Sodium Chloride 100 ML (SODIUM CHLORIDE 0.9% 100 ML) Vancomycin HCl 1,000 MG X1ED STA 04/10 936 DC 04/10 (VANCOMYCIN HCL) IV 04/10 1035 1041 Sodium Chloride 250 ML (SODIUM CHLORIDE 0.9%) Central Nervous System Agents Sig/Marquis Start time Last Medication Dose Route Stop Time Status Admin Morphine Sulfate 4 MG X1ED STA 04/10 0936 DC 04/10 (morphine SULFATE) IV 04/10 0937 1044 Diagnostic Agents Sig/Marquis Start time Last Medication Dose Route Stop Time Status Admin Iopamidol 100 ML .STK-MED ONE 04/10 1227 DC 04/10 (ISOVUE-300 100ML) IV 04/10 1228 1227 Iohexol 100 ML .STK-MED ONE 04/10 1218 DC 04/10 (OMNIPAQUE ORAL SOLN) PO 04/10 1219 1218 Electrolytic, Caloric, And Terry Sig/Marquis Start time Last Medication Dose Route Stop Time Status Admin Sodium Chloride 2,181.81 ML BOLUS ONCE STA 04/10 936 DC 04/10 (SODIUM CHLORIDE IV 04/10 0937 1056 0.9%) Gastrointestinal Drugs Sig/Marquis Start time Last Medication Dose Route Stop Time Status Admin Ondansetron HCl 4 MG X1ED STA 04/10 0936 DC 04/10 (ZOFRAN) IV 04/10 0937 1045 Allergies: Coded Allergies: No Known Allergies (04/10/23) Review of Systems All systems rev neg: except as marked Objective General VS/I O: Vital Signs: Date Time Temp Pulse Resp B/P B/P Pulse O2 O2 Flow FiO2 Mean Ox Delivery Rate 04/10 931 97.9 70 18 108/67 81.0 99 04/10 0930 Room air PATIENT WEIGHT: Weight (lb): Weight (oz): Weight (kg): 72.727 Medications: Active Meds + DC'd Last 24 Hrs Iopamidol (ISOVUE-300 100ML) 100 ML .STK-MED ONE IV (DC) Iohexol (OMNIPAQUE ORAL SOLN) 100 ML .STK-MED ONE PO (DC) Morphine Sulfate (morphine SULFATE) 4 MG X1ED STA IV (DC) Ondansetron HCl (ZOFRAN) 4 MG X1ED STA IV (DC) Piperacillin Sod/Tazobactam Sod (ZOSYN 3.375GM) 3.375 GM X1ED STA IV (DC ) Sodium Chloride (SODIUM CHLORIDE 0.9% 100 ML) 100 ML Sodium Chloride (SODIUM CHLORIDE 0.9%) 2,181.81 ML BOLUS ONCE STA IV (DC ) Vancomycin HCl (VANCOMYCIN HCL) 1,000 MG X1ED STA IV (DC) Sodium Chloride (SODIUM CHLORIDE 0.9%) 250 ML Physical Exam General appearance: alert, awake, oriented, no acute distress Head/Eyes: atraumatic, normocephalic, PERRLA Neck: full range of motion, non-tender, supple/no meningismus Cardiovascular: normal heart sounds, regular rate rhythm Respiratory: aerating well, clear to auscultation, no distress Abdomen: non-tender, normal bowel sounds, soft Genitourinary: scrotal swelling Extremities: moves all Musculoskeletal: normal inspection Skin: dry, intact, normal temperature Results Findings/Data: Laboratory Tests 04/10 04/10 1019 1019 Chemistry Sodium (134 - 147 mEq/L) 136 Potassium (3.4 - 5.0 mEq/L) 4.1 Chloride (100 - 108 mEq/L) 107 Carbon Dioxide (21 - 33 mEq/l) 26 Anion Gap (0 - 20) 7 BUN (7 - 18 mg/dL) 15 Creatinine (0.6 - 1.3 mg/dL) 0.8 Glomerular Filtr Rate (90 - 95) 107.2 H Glucose (70 - 110 mg/dL) 81 Lactic Acid (0.4 - 1.9 mmol/L) 0.7 Calcium (8.0 - 10.5 mg/dL) 8.0 Total Bilirubin (0.0 - 1.0 mg/dL) 0.60 Direct Bilirubin (0.0 - 0.30 MG/DL) 0.20 Indirect Bilirubin (MG/DL) 0.40 AST (15 - 37 IUnit/L) 22 ALT (30 - 65 IUnit/L) 16 L Total Alk Phosphatase (20 - 125 IUnit/L) 60 Troponin I High Sens (0 - 54 ng/L) 11 Total Protein (6.4 - 8.2 g/dL) 6.6 Albumin (3.4 - 5.0 g/dL) 3.50 Laboratory Tests 04/10 1019 Hematology WBC (4.5 - 11.0 x10 3/uL) 10.9 RBC (4.00 - 5.60 x10 6/uL) 4.32 Hgb (12.5 - 16.9 g/dL) 13.8 Hct (37.5 - 50.7 %) 40.3 MCV (81.0 - 99.0 fL) 93.3 MCH (27.0 - 33.0 pg) 31.9 MCHC (33.0 - 37.0 g/dL) 34.2 RDW (11.5 - 14.5 %) 12.3 Plt Count (150 - 400 x10 3/uL) 223 MPV (7.0 - 9.0 fL) 8.0 Neut % (Auto) (56.0 - 77.0 %) 85.8 H Lymph % (Auto) (14.0 - 32.0 %) 5.6 L Cochran % (Auto) (4.8 - 9.0 %) 7.4 Eos % (Auto) (0.3 - 3.7 %) 0.5 Baso % (Auto) (0.0 - 2.0 %) 0.3 Neut # (Auto) (2.0 - 7.6 x10 3/uL) 9.37 H Lymph # (Auto) (1.0 - 3.8 x10 3/uL) 0.61 L Cochran # (Auto) (0.1 - 0.8 x10 3/uL) 0.81 H Eos # (Auto) (0.0 - 0.2 x10 3/uL) 0.06 Baso # (Auto) (0.0 - 0.2 x10 3/uL) 0.03 Abs Immat Gran (auto) (0.00 - 0.03 x10 3/uL) 0.04 H Add Manual Diff NO Immature Gran % (0.0 - 2.0 %) 0.4 Nucleated RBC % (0 - 0 %) 0.0 Nucleated RBCs # (Man) (0.0 - 0.1 x10 3/uL) 0.00 Laboratory Tests 04/10 1019 Urines Urine Color (YEL/STRAW) YELLOW Urine Appearance (CLEAR) CLEAR Urine pH (5.0 - 7.0) 5.0 Ur Specific [place] (1.005 - 1.030) 1.035 H Urine Protein (NEGATIVE) NEGATIVE Urine Glucose (UA) (NEGATIVE) NEGATIVE Urine Ketones (NEGATIVE) NEGATIVE Urine Blood (NEGATIVE) NEGATIVE Urine Nitrite (NEGATIVE) NEGATIVE Urine Bilirubin (NEGATIVE) NEGATIVE Urine Urobilinogen (0.2 - 1.0 mg/dL) 2.0 H Ur Leukocyte Esterase (NEGATIVE) 1+ H Urine RBC (0 - 3 RBC/HPF) 0-3 Urine WBC (0 - 3 WBC/HPF) 10-20 H Ur Squamous Epith Cells (NONE SEEN /HPF) 0-5 Urine Bacteria (NONE SEEN /HPF) NONE SEEN Urine Mucus (NONE SEEN /LPF) TRACE Radiology data: Recent Impressions: RADIOLOGY - XR CHEST 1 V 04/10 0938 Report Impression - Status: SIGNED Entered: 04/10/2023 1142 IMPRESSION: No evidence for acute cardiopulmonary disease. Impression By: [email or web address] - Maxwell Salas M.D. CAT SCAN - CT ABD PELVIS W/CONT 04/10 1210 Report Impression - Status: SIGNED Entered: 04/10/2023 1338 IMPRESSION: Edema/swelling and ulceration of the right scrotum is present and could be correlated with the clinical exam. The testes are grossly normal. There is no hydrocele. There is no significant lymphadenopathy within the inguinal region. There is a prominent right veins/varicosity. The bowel is nonobstructed. Stool seen throughout the colon which may be indication of constipation can be correlated with the clinical history. Bilateral hip arthroplasty is present creating beam hardening artifacts obscuring detail in the pelvis. Impression By: [email or web address] - Harley Ward M.D. Diagnosis, Assessment Plan Problem List/A P: 1. Cellulitis of scrotum Orders: Procedure Date/time Status CBC W/AUTO DIFF 04/15 0500 Active BASIC METABOLIC PANEL 04/15 0500 Active CBC W/AUTO DIFF 04/14 0500 Active BASIC METABOLIC PANEL 04/14 0500 Active CBC W/AUTO DIFF 04/13 0500 Active BASIC METABOLIC PANEL 04/13 0500 Active CBC W/AUTO DIFF 04/12 0500 Active BASIC METABOLIC PANEL 04/12 0500 Active CBC W/AUTO DIFF 04/11 0500 Active BASIC METABOLIC PANEL 04/11 0500 Active REGULAR DIET 04/10 D Active SOCIAL SERVICE CONSULT 04/10 1602 Active PHYSICIAN CONSULT 04/10 1602 Active PHARMACY CONSULT 04/10 1503 Complete Resuscitation Status 04/10 1424 Active MRSA Protocol 04/10 1424 Active IV Access 04/10 1424 Active Intake Output 04/10 1424 Active VTE Education 04/10 142 Active Consultants: urology Code Status/Resusc. Discussion Code status: full code Free Text DxA P Notes Free Text DxA P Notes: 52 year old male, med history sig for meth abuse, admitted with scrotal cellulitis/abscess s/p I D at [facility]. 1- Scrotal abscess/cellulitis -Abd/pelvis showed tissue swelling, normal testes, and prominent R veins/ varicosity. -given vanc and zosyn in the ED -Will continue vanc for MRSA coverage -Continue supportive care with pain/anxiety control -Urology consulted -Follow labs 2- Meth absue -pt reportedly 4 days sober, feeling forgetful, and tearful during encounter -Avoid narcotic for pain control, given morphine and pt reportedly feeling "strange" -Consuted clinical social worker for resourced -Psych consulted for addiction rehabilitation -started on prn hydroxyzine for anxiety DVT ppx: lovenox at 1853 RPT #:[id number] END OF REPORT [facility] 2023-04-10 10:34:00 [facility] ([facility] EMERGENCY PROVIDER REPORT REPORT#:[id number] REPORT STATUS: Signed DATE:04/10/23 TIME: 1034 PATIENT: NORA FREIRE UNIT #: [id number] ROOM/BED: [address] AGE: 52 SEX: M PCP PHYS: No Primary or Family Physician SERVICE AUTHOR: Agapito Costello MD * ALL edits or amendments must be made on the electronic/computer document * HPI- Male General Initial Greet Date/Time 04/10/23 0914 Presentation Chief Complaint Scrotal pain, Scrotal swelling Free Text HPI Notes Free Text HPI Notes 52-year-old male with no significant past medical history presents to the emergency department for scrotal pain, tenderness. Patient states that he was seen yesterday [facility] was noted to have scrotal abscess and had drained at the bedside he was given IV antibiotics but then was sent home without any pain medicine or antibiotics. Today he returns for worsening pain, erythema, purulent drainage from the site. Also noted that he is having abdominal pain which she did not have before. Denies fever, chills, chest pain, shortness of breath, hematuria, dysuria. Review of Systems ROS Statements All systems rev neg except as marked. Focused Review of Systems Male Reports: Scrotal swelling. Past Medical History - Adult Stated Complaint TESTICLE PAIN Allergies Coded Allergies: No Known Allergies (04/10/23) Pt reports no significant: Past medical history, Past surgical history Smoking status for patients 13 years old or older: Former Smoker Physical Exam Vital Signs Vital Signs First Documented: Result Date Time O2 Delivery Room air 04/10 930 Pulse Ox 99 04/10 0931 B/P 108/67 04/10 931 B/P Mean 81.0 04/10 931 Temp 36.6 04/10 931 Pulse 70 04/10 931 Resp 18 04/10 931 Last Documented: Result Date Time Pulse Ox 99 04/10 0931 B/P 108/67 04/10 931 B/P Mean 81.0 04/10 931 Temp 36.6 04/10 931 Pulse 70 04/10 931 Resp 18 04/10 931 O2 Delivery Room air 04/10 930 Review of Vital Signs Reviewed, Vital signs normal Free Text PE Notes Free Text PE Notes General/Const Awake, Alert HENT Head atraumatic, normocephalic, ears/nose/throat airway patent, TMs clear bilaterally MS Neck Neck Supple, no swelling, no tenderness to palpation Resp/Chest CTAB, No respiratory distress, no rales, no rhonchi, no wheezing Cardiovascular Normal rate, regular rhythm, heart sounds. No rubs murmurs gallops Abdomen/GI Normal bowel sounds, soft, nontender, nondistended. No rebound or guarding. Genital exam performed with a mechanical and auto body car checker tenderness to palpation over the scrotum with an open wound with purulent drainage. MS noLower Ext/Pelvis/MS No swelling, Non-tender Skin Skin Warm, Dry, no abrasions, rashes, lacerations Neurologic Neurologic Oriented X3, Speech NL, no focal neuro deficits, CN 2-12 intact, 5 /5 strength, sensation intact Interpretation Diagnostics Lab Results Interpretation Results Laboratory Tests 04/10/23 1019: [Embedded Image Not Available] Laboratory Tests: 04/10 04/10 1019 1019 Chemistry Sodium (134 - 147 mEq/L) 136 Potassium (3.4 - 5.0 mEq/L) 4.1 Chloride (100 - 108 mEq/L) 107 Carbon Dioxide (21 - 33 mEq/l) 26 Anion Gap (0 - 20) 7 BUN (7 - 18 mg/dL) 15 Creatinine (0.6 - 1.3 mg/dL) 0.8 Glomerular Filtr Rate (90 - 95) 107.2 H Glucose (70 - 110 mg/dL) 81 Lactic Acid (0.4 - 1.9 mmol/L) 0.7 Calcium (8.0 - 10.5 mg/dL) 8.0 Total Bilirubin (0.0 - 1.0 mg/dL) 0.60 Direct Bilirubin (0.0 - 0.30 MG/DL) 0.20 Indirect Bilirubin (MG/DL) 0.40 AST (15 - 37 IUnit/L) 22 ALT (30 - 65 IUnit/L) 16 L Total Alk Phosphatase (20 - 125 IUnit/L) 60 Troponin I High Sens (0 - 54 ng/L) 11 Total Protein (6.4 - 8.2 g/dL) 6.6 Albumin (3.4 - 5.0 g/dL) 3.50 Hematology WBC (4.5 - 11.0 x10 3/uL) 10.9 RBC (4.00 - 5.60 x10 6/uL) 4.32 Hgb (12.5 - 16.9 g/dL) 13.8 Hct (37.5 - 50.7 %) 40.3 MCV (81.0 - 99.0 fL) 93.3 MCH (27.0 - 33.0 pg) 31.9 MCHC (33.0 - 37.0 g/dL) 34.2 RDW (11.5 - 14.5 %) 12.3 Plt Count (150 - 400 x10 3/uL) 223 MPV (7.0 - 9.0 fL) 8.0 Neut % (Auto) (56.0 - 77.0 %) 85.8 H Lymph % (Auto) (14.0 - 32.0 %) 5.6 L Cochran % (Auto) (4.8 - 9.0 %) 7.4 Eos % (Auto) (0.3 - 3.7 %) 0.5 Baso % (Auto) (0.0 - 2.0 %) 0.3 Neut # (Auto) (2.0 - 7.6 x10 3/uL) 9.37 H Lymph # (Auto) (1.0 - 3.8 x10 3/uL) 0.61 L Cochran # (Auto) (0.1 - 0.8 x10 3/uL) 0.81 H Eos # (Auto) (0.0 - 0.2 x10 3/uL) 0.06 Baso # (Auto) (0.0 - 0.2 x10 3/uL) 0.03 Abs Immat Gran (auto) (0.00 - 0.03 x10 3/uL) 0.04 H Add Manual Diff NO Immature Gran % (0.0 - 2.0 %) 0.4 Nucleated RBC % (0 - 0 %) 0.0 Nucleated RBCs # (Man) (0.0 - 0.1 x10 3/uL) 0.00 Urines Urine Color (YEL/STRAW) YELLOW Urine Appearance (CLEAR) CLEAR Urine pH (5.0 - 7.0) 5.0 Ur Specific [place] (1.005 - 1.030) 1.035 H Urine Protein (NEGATIVE) NEGATIVE Urine Glucose (UA) (NEGATIVE) NEGATIVE Urine Ketones (NEGATIVE) NEGATIVE Urine Blood (NEGATIVE) NEGATIVE Urine Nitrite (NEGATIVE) NEGATIVE Urine Bilirubin (NEGATIVE) NEGATIVE Urine Urobilinogen (0.2 - 1.0 mg/dL) 2.0 H Ur Leukocyte Esterase (NEGATIVE) 1+ H Urine RBC (0 - 3 RBC/HPF) 0-3 Urine WBC (0 - 3 WBC/HPF) 10-20 H Ur Squamous Epith Cells (NONE SEEN /HPF) 0-5 Urine Bacteria (NONE SEEN /HPF) NONE SEEN Urine Mucus (NONE SEEN /LPF) TRACE Microbiology: Date/Time Procedure - Status Source Growth 04/10 1019 Urine Culture - WKST URINE 04/10 1019 Blood Culture - RECD BLOOD 04/10 1019 Blood Culture - RECD BLOOD Recent Impressions: RADIOLOGY - XR CHEST 1 V 04/10 938 Report Impression - Status: SIGNED Entered: 04/10/2023 1142 IMPRESSION: No evidence for acute cardiopulmonary disease. Impression By: [email or web address] Karen Salas M.D. CAT SCAN - CT ABD PELVIS W/CONT 04/10 1210 Report Impression - Status: SIGNED Entered: 04/10/2023 1338 IMPRESSION: Edema/swelling and ulceration of the right scrotum is present and could be correlated with the clinical exam. The testes are grossly normal. There is no hydrocele. There is no significant lymphadenopathy within the inguinal region. There is a prominent right veins/varicosity. The bowel is nonobstructed. Stool seen throughout the colon which may be indication of constipation can be correlated with the clinical history. Bilateral hip arthroplasty is present creating beam hardening artifacts obscuring detail in the pelvis. Impression By: [email or web address] - Harley Ward M.D. Lab Imaging Statement Laboratory radiographic studies reviewed and considered in the medical decision-making. ECG #1 Interpretation Text/Dict Note 62 bpm normal sinus rhythm no ST elevation, ST depression or T wave inversion noted. Date 04/10/23 Time 1021 Interpreted by and reviewed by me, ED physician Free Text I D Notes Free Text I D Notes Recent Impressions: RADIOLOGY - XR CHEST 1 V 04/10 938 Report Impression - Status: SIGNED Entered: 04/10/2023 1142 IMPRESSION: No evidence for acute cardiopulmonary disease. Impression By: [email or web address] Salas M.D. CAT SCAN - CT ABD PELVIS W/CONT 04/10 1210 Report Impression - Status: SIGNED Entered: 04/10/2023 1338 IMPRESSION: Edema/swelling and ulceration of the right scrotum is present and could be correlated with the clinical exam. The testes are grossly normal. There is no hydrocele. There is no significant lymphadenopathy within the inguinal region. There is a prominent right veins/varicosity. The bowel is nonobstructed. Stool seen throughout the colon which may be indication of constipation can be correlated with the clinical history. Bilateral hip arthroplasty is present creating beam hardening artifacts obscuring detail in the pelvis. Impression By: [email or web address] - Harley Ward M.D. Re-Evaluation [facility] ED Course Medication(s) Ordered Medication(s) Ordered: Anti-Infective Agents Sig/Marquis Start time Last Medication Dose Route Stop Time Status Admin Piperacillin Sod/ 3.375 GM X1ED STA 04/10 936 DC 04/10 Tazobactam Sod IV 04/10 1005 1040 Sodium Chloride 100 ML Vancomycin HCl 1,000 MG X1ED STA 04/10 0936 DC 04/10 Sodium Chloride 250 ML IV 04/10 1035 1041 Central Nervous System Agents Sig/Marquis Start time Last Medication Dose Route Stop Time Status Admin Morphine Sulfate 4 MG X1ED STA 04/10 0936 DC 04/10 IV 04/10 0937 1044 Diagnostic Agents Sig/Marquis Start time Last Medication Dose Route Stop Time Status Admin Iopamidol 100 ML .STK-MED ONE 04/10 1227 DC 04/10 IV 04/10 1228 1227 Iohexol 100 ML .STK-MED ONE 04/10 1218 DC 04/10 PO 04/10 1219 1218 Electrolytic, Caloric, And Terry Sig/Marquis Start time Last Medication Dose Route Stop Time Status Admin Sodium Chloride 2,181.81 ML BOLUS ONCE STA 04/10 936 DC 04/10 IV 04/10 0937 1056 Gastrointestinal Drugs Sig/Marquis Start time Last Medication Dose Route Stop Time Status Admin Ondansetron HCl 4 MG X1ED STA 04/10 936 DC 04/10 IV 04/10 0937 1045 Free Text MDM Notes Free Text MDM Notes 52-year-old male with no significant past medical history presents to the emergency department for scrotal pain, tenderness. Patient states that he was seen yesterday at [facility] was noted to have scrotal abscess and had drained at the bedside he was given IV antibiotics but then was sent home without any pain medicine or antibiotics. Today he returns for worsening pain, erythema, purulent drainage from the site. Also noted that he is having abdominal pain which she did not have before. Denies fever, chills, chest pain, shortness of breath, hematuria, dysuria. Vital signs stable. Normal bowel sounds, soft, nontender, nondistended. No rebound or guarding. Genital exam performed with a mechanical and auto body car checker tenderness to palpation over the scrotum with an open wound with purulent drainage. Labs showed normal white blood cell count, normal lactic acid. CT scan showed edema and swelling concerning for possible cellulitis and there was ulceration, no gas noted. Patient given vancomycin and Zosyn. Morphine and Zofran were given for pain. Will admit to the hospital medicine for scrotal cellulitis need for IV antibiotics. Placed a urology consult. Patient Discharge Departure Vital Signs/Condition Vital Signs First Documented: Result Date Time O2 Delivery Room air 04/10 930 Pulse Ox 99 04/10 931 B/P 108/67 04/10 931 B/P Mean 81.0 04/10 931 Temp 36.6 04/10 931 Pulse 70 04/10 931 Resp 18 04/10 931 Last Documented: Result Date Time Pulse Ox 99 04/10 931 B/P 108/67 04/10 931 B/P Mean 81.0 04/10 931 Temp 36.6 04/10 931 Pulse 70 04/10 931 Resp 18 04/10 0931 O2 Delivery Room air 04/10 930 All vital signs available at the time of this entry have been reviewed. Condition Stable Clinical Impression Clinical Impression Primary Impression: Cellulitis of scrotum Disposition Decision Hospitalize Hosp Physician Name Paulino Carmona MD )( Accepts Hospitalization Yes )( Reason for Hospitalization SCROTAL CELLULITIS )( Accepted Time 1353 )( Accepted Date 04/10/23 Call Information will see patient Discharge/Care Plan Counseled Regarding Diagnosis, Lab results, Imaging studies, Need for admission Admit Note I have spoken with the patient and/or caregivers. I have explained the patient's condition, diagnoses and treatment plan based on the information available to me at this time. I have answered the patient's and/or caregiver's questions and addressed any concerns. The patient and/or caregivers have as good an understanding of the patient's diagnosis, condition and treatment plan as can be expected at this point. The patient has been stabilized within the capability of the emergency department. The patient will be transported for further care and management or will be moved to an observation or inpatient service. I have communicated with the staff or medical practitioner taking over this patient's care. at [address] [facility] #:[id number] END OF REPORT [facility] 2023-04-10 00:42:25 Formatting of this n ote might be different from the original. Patient and guest walked out of meta area. RN unaware if patient is still present in the hospital. Charge nurse notified. [facility] Amanda Vences RN [facility] 2023-04-10 00:35:53 Formatting of this n ote might be different from the original. Patient and guest attempting to leave. RN educated on need to receive discharge paperwork and discharge prescriptions. Patients guest stated "this is the most unprofessional hospital I have ever been to." Patient then proceeded to demand the IV be removed. RN removed IV. notified. [facility] 2023-04-10 00:26:20 Formatting of this n ote might be different from the original. Patient and guest walking around hallway after urology finished procedure. RN educated on need to stay in room. Patient stated that room smelled bad. RN offered room spray to patient. Patients guest refused. RN offered to move patient to room 145. Patient accepted. Patient moved to room 145. [facility] 2023-04-09 23:34:00 Formatting of this n ote might be different from the original. Urology at bedside. [facility] 2023-04-09 22:54:00 Formatting of this n ote might be different from the original. Patient reporting pain. MD Robison notified. [facility] 2023-04-09 21:11:03 Formatting of this n ote might be different from the original. Patient returned to room. Urology notified. [facility] 2023-04-09 20:55:43 Formatting of this n ote might be different from the original. RN attempted to call patient again x2 and alternate contact x2. No answer. Charge nurse notified. [facility] 2023-04-09 20:20:20 Formatting of this n ote might be different from the original. Urology at bedside to evaluate patient. Patient not present in room, believed to be smoking. RN checked outside and was unable to see patient. RN attempted to call patient number on file, no answer. Patient answered on second attempt, states he is coming back. Urology notified. [facility] 2023-04-09 19:48:37 Formatting of this n ote might be different from the original. RN attempted to medicate patient upon his return from ultrasound. Patient informed RN that he needs to smoke before antibiotics can be started. RN removed patients IV. See IV assessment. RN will reinitiate IV access and medicate patient upon return to room. [facility] 2023-04-09 19:41:17 Formatting of this n ote might be different from the original. Pt walked outside with to smoke, this RN met pt outside and informed him he cannot leave the building with a PIV in place and cannot smoke on campus. This RN offered to remove pt's PIV and told he could walk across the street if he needed to smoke, pt declined. Pt ambulated back to room with this RN and in NAD. Primary RN notified of pt return to room. [facility] Lindsey Peña RN [facility] 2023-04-09 19:15:15 Formatting of this n ote might be different from the original. Report received from Leona YANEZ. Previous treatment and plan of care discussed. Patient in ultrasound at this time. [facility] 2023-04-09 18:59:15 Formatting of this n ote might be different from the original. JESSE to US Leona Maki RN [facility] 2023-04-09 16:41:21 Formatting of this n ote might be different from the original. Nora Freire is a 52 year old male Presents to ED with c/o ingrowing hair to scrotum 1 week ago which has now turned into an abscess. Denies any drainage or pus . States area is red and hard. Roomed for further eval. Rae Epstein RN [facility] 2023-04-09 16:34:00 Formatting of this n ote is different from the original. Images from the original note were not included. 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 treatment: None Travel and Exposure Screening: Symptoms Does patient have any of these symptoms?: (not recorded) Exposure Screening Has patient had contact with someone with a communicable disease in the last month?: (not recorded) Diseases exposed to:: (not recorded) Is Patient ?: (not recorded) Exposure Date: (not recorded) Chief Complaint: Chief Complaint Patient presents with Abscess History of Present Illness: History provided by: Patient vfx artist used: No Abscess Location: Pelvis Pelvic abscess location: Scrotum Abscess quality: fluctuance, painful, redness and warmth Red streaking: no Duration: 7 days Progression: Worsening Pain details: Quality: Pressure Severity: Severe Duration: 7 days Timing: Constant Progression: Worsening Chronicity: New Context: skin injury (pt states he had an ingrown hair to the right side of his scrotum approx 1 week ago and worsened rapidly. Denies any drainage from area.) Context: not diabetes, not immunosuppression, not injected drug use and not insect bite/sting Relieved by: Nothing Ineffective treatments: None tried Associated symptoms: no anorexia, no fatigue, no fever, no headaches, no nausea and no vomiting Risk factors: no family hx of MRSA, no hx of MRSA and no prior abscess Past Medical History/Immunizations: History reviewed. No pertinent past medical history. Tetanus received in last 5 years: Unknown Allergies: No Known Allergies Past Social History: Substance & Sexual Activity No substance use or sexual activity history on file. Past Surgical History: History reviewed. No pertinent surgical history. Review of Systems: Review of Systems Constitutional: Negative for chills, fatigue, fever, weight gain and weight loss. HENT: Negative for congestion and sinus pressure. Eyes: Negative for photophobia and visual disturbance. Respiratory: Negative for cough, shortness of breath and wheezing. Cardiovascular: Negative for chest pain and leg swelling. Gastrointestinal: Negative for abdominal pain, anorexia, constipation, nausea and vomiting. Genitourinary: Positive for scrotal swelling and testicular pain. Negative for dysuria and flank pain. Musculoskeletal: Negative for arthralgias, myalgias and neck pain. Skin: Positive for color change. Negative for rash and wound. Neurological: Negative for dizziness, weakness and headaches. Psychiatric/Behavioral: Negative for confusion and suicidal ideas. Hematological: Negative for adenopathy. Does not bruise/bleed easily. Endocrine: Negative for weight gain and weight loss. Physical Exam: ED Triage Vitals Weight 04/09/23 1642 72.6 kg (160 lb) Actual or estimated -- Height -- BP 04/09/23 1642 (!) 143/94 Pulse 04/09/23 1642 107 Resp 04/09/23 1642 18 Temp 04/09/23 1642 36.8 ?C (98.2 ?F) Temp source 04/09/23 1641 Oral SpO2 04/09/23 1642 96 % Measured on 04/09/23 1641 Room air Physical Exam Vitals and nursing note reviewed. Exam conducted with a mechanical and auto body car checker present (Leona, RN present as mechanical and auto body car checker). Constitutional: General: He is in acute distress. Appearance: Normal appearance. He is well-developed. He is not ill-appearing. HENT: Head: Normocephalic and atraumatic. Right Ear: Hearing and external ear normal. Left Ear: Hearing and external ear normal. Nose: Nose normal. Mouth/Throat: Lips: [place]. Mouth: Mucous membranes are moist. Cardiovascular: Rate and Rhythm: Regular rhythm. Tachycardia present. Pulmonary: Effort: Pulmonary effort is normal. No tachypnea or respiratory distress. Genitourinary: Testes: Right: Tenderness and swelling present. Left: Tenderness and swelling present. Neurological: Mental Status: He is alert. Psychiatric: Behavior: Behavior is cooperative. Radiology: US TESTICULAR TORSION Final Result EXAM: US TESTICULAR TORSION DATE: 04/09/2023 HISTORY: right testicular pain, r/o torsion ORDERING PHYSICIAN: SHARMAINE HURLEY COMPARISON: None available TECHNIQUE: 2-D, spectral Doppler and color Doppler ultrasound of the scrotum FINDINGS: Right testes measures 4.8 x 2.6 x 2.9 cm. The left testes measures 4.6 x 2.3 x 3.3 cm. There is normal color flow seen to both testes. No testicular mass is seen. Epididymides are slightly heterogeneous. 3.6 x 1.8 cm, lobulated, heterogeneous collection is seen in the right hemiscrotal wall, without definite color flow. Small right hydrocele is seen. No varicocele is seen. IMPRESSION 1. There is normal color flow seen to both testes. No testicular mass is seen. Epididymides are slightly heterogeneous. Please correlate clinically for epididymitis. 2. 3.6 x 1.8 cm, lobulated, heterogeneous collection is seen in the right hemiscrotal wall, without definite color flow. Findings may represent seroma or hematoma. Recommend clinical and imaging follow-up for the same. 3. Small right hydrocele is seen. RL: [id number] PELVIS W CONTRAST Final Result CT PELVIS W CONTRAST Indication: Soft tissue infection suspected, pelvis, xray done scrotal abscess Comparison: None. RL: [facility] [id number] HS: Y Ordering Clinician: SHARMAINE HURLEY Technique: Postcontrast CT imaging of the pelvis with sagittal and coronal reformats.. Dose reduction techniques were used (ALARA). Technical Quality: Adequate Discussion: Subcutaneous fluid collection along the right hemiscrotum measuring 4.6 x 2.0 cm concerning for an abscess. No intrapelvic abscess. Bilateral hip arthroplasties. No pelvic free fluid. IMPRESSION Impression: Right hemiscrotum abscess. Scrotal ultrasound recommended to exclude any extension or involvement of the testicle. Lab Results: Lab Results CBC WITH DIFF - Abnormal Result Value Ref Range WBC 19.54 (*) 4.20 - 10.70 10*3/?L RBC 4.46 4.26 - 5.52 10*6/?L HGB 14.3 12.2 - 16.4 g/dL HCT 40.3 38.4 - 49.3 % MCV 90.4 81.7 - 95.6 fL MCH 32.1 26.1 - 32.7 pg MCHC 35.5 (*) 31.2 - 35.0 g/dL RDW-SD 40.4 38.5 - 51.6 fL RDW-CV 12.3 12.1 - 15.4 % PLT 221 150 - 328 10*3/?L MPV 8.0 (*) 9.8 - 13.0 fL NRBC/100 WBC 0.0 0.0 - 10.0 /100 WBCs NRBC x10^3 <0.01 10*3/?L GRAN MAT (NEUT) % 81.9 % IMM GRAN % 0.50 % LYMPH % 8.3 % MONO % 9.0 % EOS % 0.1 % BASO % 0.2 % GRAN MAT x10^3(ANC) 16.01 (*) 1.99 - 6.95 10*3/uL IMM GRAN x10^3 0.09 (*) 0.00 - 0.06 10*3/uL LYMPH x10^3 1.63 1.09 - 3.23 10*3/uL MONO x10^3 1.76 (*) 0.36 - 1.02 10*3/uL EOS x10^3 <0.03 (*) 0.06 - 0.53 10*3/uL BASO x10^3 0.03 0.01 - 0.09 10*3/uL URINALYSIS - Abnormal APPEARANCE Clear Clear COLOR Yellow Yellow PH 6.0 4.8 - 8.0 SP GRAVITY 1.009 1.003 - 1.030 GLU U QUAL Normal Normal BLOOD Negative Negative KETONES Negative Negative PROTEIN Negative Negative UROBILIN Normal Normal BILIRUBIN Negative Negative NITRITE Negative Negative LEUK LUI 25/uL (*) Negative RBC/HPF 1 0 - 3 HPF WBC/HPF 1 0 - 5 HPF BACTERIA Negative Negative COMP. METABOLIC PANEL (26975) - Abnormal NA 129 (*) 135 - 145 mmol/L K 4.0 3.5 - 5.0 mmol/L CL 97 (*) 98 - 108 mmol/L CO2 TOTAL 27 23 - 31 mmol/L AGAP 5 2 - 16 BUN 19 7 - 23 mg/dL GLUCOSE 106 70 - 110 mg/dL CREATININE 0.86 0.60 - 1.25 mg/dL TOTAL BILI 1.0 0.1 - 1.1 mg/dL CALCIUM 8.4 (*) 8.6 - 10.6 mg/dL T PROTEIN 7.0 6.3 - 8.2 g/dL ALBUMIN 3.8 3.5 - 5.0 g/dL ALK PHOS 56 34 - 122 U/L ALTv 23 5 - 50 U/L AST(SGOT) 27 13 - 40 U/L eGFR 93.8 mL/min/1.73m2 LACTIC ACID WHOLE BLOOD - Normal LACTIC ACID 1.01 0.50 - 2.20 mmol/L BLOOD CULTURE SCREEN BLOOD CULTURE SCREEN URINE CULTURE EKG: If EKG completed, see Procedure Note. Orders and Treatments: Orders Placed This Encounter Procedures US TESTICULAR TORSION CT PELVIS W CONTRAST CBC WITH DIFF URINALYSIS COMP. METABOLIC PANEL (99759) Blood Culture - Peripheral # 1 Blood Culture - Peripheral # 2 Lactic Acid Whole Blood Lactic Acid Whole Blood URINE CULTURE CONSULT UROLOGY Orders Placed This Encounter Medications NaCl 0.9% (NS) bolus infusion 2,178 mL morpHINE (4 mg/mL) injection 4 mg ondansetron (ZOFRAN (PF)) injection 4 mg vancomycin (VANCOCIN) 1,000 mg in NaCl 0.9% (NS) 250 mL VIAL-MATE IV piggyback piperacillin-tazobactam (ZOSYN) 3.375 g in NaCl 0.9% (NS) 100 mL MINI-BAG iopamidol (ISOVUE 370-500 mL) injection 70 mL HYDROcodone-acetaminophen (NORCO) 10-325 mg tablet 1 tablet First Provider Eval: ED Events Date/Time Event User Comments 04/09/23 1638 Medical Screening Begins ANAM MICHIGENEVAE -- 04/09/23 1638 First Provider Evaluation ANAM MICHIGENEVAE -- ED COURSE ED Course as of 04/09/232153 Sun Apr 09, [id number] Discussed this patient with Dr. Robison. He will assume care of patient until disposition. Still pending urology consult and I&D of scrotal abscess. [RM] 2122 Pt showed back up in the ED. Urology had been waiting for over an hour for patient. Notified Dr. Horan that patient was back in the ED. Nurse restarting IV and will give Vanco. [RM] 1902 LACTIC ACID WHOLE BLOOD: 1.01 WNL. [RM] [address] Jeffrey, urology, regarding CT results of Subcutaneous fluid collection along the right hemiscrotum measuring 4.6 x 2.0 cm concerning for an abscess. No intrapelvic abscess. Consult was placed. States she will consult with upper level. Patient updated on CT results, told to remain NPO. [RM] 1720 WBC x10^3(!): 19.54 Sepsis protocol in process. Vanc and Zosyn pending. [RM] ED Course User Index [RM] HurleySharmaine vitale FNP Diagnosis/Impression as of 04/09/232153 Testicular pain, right Scrotal swelling Tachycardia Scrotal abscess Procedures: Procedures MDM: Medical Decision Making Patient was evaluated for the complaint of Abscess Diagnoses considered but not limited to: Cystitis (acute) Epididymitis Orchitis Testicular Torsion Urethritis Scrotal abscess, gangrene. Labs:were ordered, and resulted, any relevant abnormalities were considered. Imaging:Ordered, and resulted, any relevant abnormalities were considered. Procedures:were not performed. History, physical exam findings, results of visit, diagnosis, medication regimens and plan of future care have been considered. Additional MDM may be found in the ED course. Vital signs were rechecked before final disposition and determined to be expected for patient's clinical condition.. Problems Addressed: Scrotal abscess: complicated acute illness or injury Scrotal swelling: acute illness or injury Tachycardia: acute illness or injury Testicular pain, right: acute illness or injury Amount and/or Complexity of Data Reviewed Labs: ordered. Decision-making details documented in ED Course. Radiology: ordered. Decision-making details documented in ED Course. Discussion of management or test interpretation with external provider(s): Spoke at length with urology, Lyn Horan and Rachele regarding patient and care. Risk Prescription drug management. Parenteral controlled substances. Flowsheet Documentation: Scoring Tools: No data recorded Disposition/Condition: ED Disposition None Discharge Medications: Patient's Medications No medications on file Follow-up: Electronically signed by: Sharmaine Hurley FNP 04/09/232153 Associated attestation - Dina Robison MD - 04/09/2023 10:44 PM CDT Addendum I was personally available for consultation in the Emergency Department during this encounter and patient evaluation by Anam. [facility] 2023-04-09 16:34:00 Formatting of this n ote might be different from the original. Pt signed to dr hurtado Urology at bedside draining abscess Dina Robison MD 04/09/23 0014 [facility] EMERGENC[facility] PH[facility]IAN STAFF [facility]
[2024-07-23] MEDS ORDERED: IBUPROFEN 400 MG TAB ONE (23:51)
[2024-07-23] MEDS ORDERED: LIDOCAINE 1% 20 ML MDV ONE (23:51)
[2024-07-23] MEDS ORDERED: HYDROCODONE/APAP 10/325 TAB ONE (23:52)
--- NOTE | 2024-07-24 01:50 | ER ---
Nurse's Notes [facility] Name: Benedicto Arizmendi Age: 54 yrs Sex: Male : 1970 Arrival Date: 07/23/2024 Time: 22:29 Bed 9 Private MD: Diagnosis: Avulsion fracture dorsal base Right fifth digit distal phalanx with displacement Presentation: 07/23 23:07 Chief complaint: Patient states: hurt right finger playing volleyball. Coronavirus vc1 screen: Client denies travel out of the [place] in the last 14 days. At this time, the client does not indicate any symptoms associated with coronavirus-19. Ebola Screen: Patient negative for fever greater than or equal to 101.5 degrees Fahrenheit, and additional compatible Ebola Virus Disease symptoms Patient denies exposure to infectious person. Patient denies travel to an Ebola-affected area in the 21 days before illness onset. No symptoms or risks identified at this time. Risk Assessment: Do you want to hurt yourself or someone else? Patient reports no desire to harm self or others. Onset of symptoms was July 23, 2024. Care prior to arrival: None. 23:07 Method Of Arrival: Ambulatory vc1 23:07 Acuity: KESHAV 3 vc1 23:25 Initial Sepsis Screen: Does the patient meet any 2 criteria? No. Patient's initial vc1 sepsis screen is negative. Does the patient have a suspected source of infection? No. Patient's initial sepsis screen is negative. Triage Assessment: 23:10 General: Appears in no apparent distress. uncomfortable, slender, well groomed, well vc1 developed, well nourished, Behavior is calm, cooperative, appropriate for age. Pain: Complains of pain in right little finger Pain does not radiate. Pain currently is 8 out of 10 on a pain scale. EENT: No deficits noted. No signs and/or symptoms were reported regarding the EENT system. Neuro: Level of Consciousness is awake, alert, obeys commands, Oriented to person, place, time, situation, Appropriate for age. Cardiovascular: Heart tones S1 S2 present Capillary refill < 3 seconds Patient's skin is warm and dry. Respiratory: Airway is patent Respiratory effort is even, unlabored, Respiratory pattern is regular, symmetrical, Breath sounds are clear bilaterally. GI: No deficits noted. No signs and/or symptoms were reported involving the gastrointestinal system. : No deficits noted. No signs and/or symptoms were reported regarding the genitourinary system. Derm: Skin is intact, is healthy with good turgor, Skin is dry, Skin is normal, Skin temperature is warm Bruising that is dark purple, on right little finger. Musculoskeletal: Circulation, motion, and sensation intact. Range of motion: limited in DIP of right little finger. Historical: - Allergies: 23:23 No Known Allergies; vc1 - Home Meds: 23:23 None [Active]; vc1 - PMHx: 23:23 None; vc1 - PSHx: 23:23 None; vc1 - Immunization history:: Client reports having NOT received the Covid vaccine. - Infectious Disease History:: Denies. - Social history:: Smoking status: Patient reports the use of cigarette tobacco products, smokes 0.25 packs per day. - Family history:: not pertinent. Screenin:27 Abuse screen: Denies threats or abuse. Nutritional screening: No deficits noted. vc1 Tuberculosis screening: No symptoms or risk factors identified. 23:27 [facility] ED Fall Risk Assessment (Adult) History of falling in the last 3 months, vc1 including since admission No falls in past 3 months (0 pts) Confusion or Disorientation No (0 pts) Intoxicated or Sedated No (0 pts) Impaired Gait No (0 pts) Mobility Assist Device Used No (0 pt) Altered Elimination No (0 pt) Score/Fall Risk Level 0 - 2 = Low Risk Oriented to surroundings, Maintained a safe environment, Educated pt \T\ family on fall prevention, incl call for assistance when getting out of bed. Vital Signs: 23:24 Weight 72.57 kg; Height 5 ft. 10 in. ; Pain 9/10; vc1 23:25 BP 146 / 98; Pulse 62; Temp 97.3; Pulse Ox 96% ; vc1 23:24 Body Mass Index 22.96 (72.57 kg, 177.8 cm) vc1 23:24 Pain Scale: Adult vc1 Evan Coma Score: 07/24 23:37 Eye Response: spontaneous(4). Motor Response: obeys commands(6). Verbal Response: sp4 oriented(5). Total: 15. ED Course: 07/23 22:31 Patient arrived in ED. ra3 22:34 Potepalov, Hakan, MD is Attending Physician. sp4 23:08 Triage completed. vc1 23:24 Arm band placed on right wrist. vc1 23:24 Patient has correct armband on for positive identification. Bed in low position. Call vc1 light in reach. Pulse ox on. NIBP on. 23:24 Provided Education on: pain medication. vc1 23:39 Hand Right 3 View XRAY In Process Unspecified. EDMS 07/24 01:48 Truong Sykes MD is Referral Physician. sp4 02:00 Assist provider with nerve block (digital) of right little finger Set up for procedure. vc1 Performed by Hakan Pathak MD Patient tolerated well. 02:23 Patient did not have IV access during this emergency room visit. vc1 Administered Medications: 00:00 Drug: Bee PO 10 mg-325 mg 1 tabs PO once Route: PO; kb3 00:30 Follow up: Response: No adverse reaction; Pain is decreased vc1 00:00 Drug: Ibuprofen PO 800 mg PO once Route: PO; kb3 00:30 Follow up: Response: Marked relief of symptoms; Pain is decreased vc1 01:55 Drug: Lidocaine Infiltration (1 %) 20 ml 20 ml Infiltration once; to bedside {Note: vc1 administered by Dr. Pathak.} Volume: 20 ml; Route: Infiltration; 02:14 Drug: Bee PO 10 mg-325 mg 1 tabs PO once Route: PO; vc1 02:14 Follow up: Response: Medication administered at discharge. vc1 02:14 Drug: Methocarbamol PO 1500 mg PO once Route: PO; vc1 02:14 Follow up: Response: Medication administered at discharge. vc1 Medication: 02:19 VIS not applicable for this client. vc1 Outcome: 01:49 Discharge ordered by . sp4 02:23 Discharged to home ambulatory, vc1 02:23 Condition: good 02:23 Discharge instructions given to patient, Instructed on discharge instructions, follow up and referral plans. medication usage, Demonstrated understanding of instructions, follow-up care, medications, Prescriptions given X 2, 02:24 Patient left the ED. vc1 Signatures: Dispatcher [employer] EDAR Gillian Neal RN RN vc1 Marilin Bowden RN RN kb3 Hakan Pathak MD MD sp4 Elsie Villalta ra3 Corrections: (The following items were deleted from the chart) 07/23 23:24 23:23 PMHx: Unable to Obtain; vc1 vc1
--- NOTE | 2024-07-24 01:50 | EDPHYS ---
Physician Documentation [facility] Name: Benedicto Arizmendi Age: 54 yrs Sex: Male : 1970 Arrival Date: 07/23/2024 Time: 22:29 Bed 9 Private MD: ED Physician Hakan Pathak HPI: 07/23 22:34 This 54 yrs old Male presents to ER via Unassigned with complaints of right sp4 pinky injury. 07/24 21:04 54-year-old male presents with acute injury to the right small finger associated with sp4 pain swelling and discoloration. Patient states he has trouble moving his right small finger.. Historical: - Allergies: 07/23 23:23 No Known Allergies; vc1 - Home Meds: 23:23 None [Active]; vc1 - PMHx: 23:23 None; vc1 - PSHx: 23:23 None; vc1 - Immunization history:: Client reports having NOT received the Covid vaccine. - Infectious Disease History:: Denies. - Social history:: Smoking status: Patient reports the use of cigarette tobacco products, smokes 0.25 packs per day. - Family history:: not pertinent. ROS: 07/24 21:04 Constitutional: Negative for fever, chills, and weight loss, positive right hand injury sp4 positive pain discoloration right small finger All other systems are negative, Exam: 23:37 Constitutional: This is a well developed, well nourished patient who is awake, alert, sp4 and in no acute distress. Head/Face: Normocephalic, atraumatic. Eyes: Pupils equal round and reactive to light, extra-ocular motions intact. Lids and lashes normal. Conjunctiva and sclera are not injected. Cornea within normal limits. Periorbital areas with no swelling, redness, or edema. ENT: Nares patent. No nasal discharge, no septal abnormalities noted. Tympanic membranes are normal and external auditory canals are clear. Oropharynx with no redness, swelling, or masses, exudates, or evidence of obstruction, uvula midline. Mucous membranes moist. Neck: Trachea midline, no thyromegaly or masses palpated, and no cervical lymphadenopathy. Supple, full range of motion without nuchal rigidity, or vertebral point tenderness. Chest/axilla: Normal chest wall appearance and motion. Nontender with no deformity. No lesions are appreciated. Cardiovascular: Regular rate and rhythm with a normal S1 and S2. No gallops, murmurs, or rubs. Normal PMI, no JVD. No pulse deficits. Respiratory: Lungs have equal breath sounds bilaterally, clear to auscultation and percussion. No rales, rhonchi or wheezes noted. No increased work of breathing, no retractions or nasal flaring. Abdomen/GI: Soft, with normal bowel sounds. No distension or tympany. No guarding or rebound. No evidence of tenderness throughout. Back: No spinal tenderness. No costovertebral tenderness. Skin: Warm, dry with normal turgor. Normal color with no rashes, no lesions, and no evidence of cellulitis. MS/ Extremity: Pulses equal, no cyanosis. Neurovascular intact. Full, normal range of motion. Positive right hand small finger discoloration tenderness and swelling. Patient has problems with extension of the right small finger distal phalanx Neuro: Awake and alert, GCS 15, oriented to person, place, time, and situation. Cranial nerves II-XII grossly intact. Motor strength 5/5 in all extremities. Sensory grossly intact. Psych: Awake, alert, with orientation to person, place and time. Behavior, mood, and affect are within normal limits Vital Signs: 07/23 23:24 Weight 72.57 kg; Height 5 ft. 10 in. ; Pain 9/10; vc1 23:25 BP 146 / 98; Pulse 62; Temp 97.3; Pulse Ox 96% ; vc1 23:24 Body Mass Index 22.96 (72.57 kg, 177.8 cm) vc1 23:24 Pain Scale: Adult vc1 Evan Coma Score: 07/24 23:37 Eye Response: spontaneous(4). Motor Response: obeys commands(6). Verbal Response: sp4 oriented(5). Total: 15. Procedures: 23:37 Splinting: Splint applied to right wrist, right hand and palmar aspect of right forearm sp4 -right distal forearm wrist and hand ulnar gutter to include the right small and Ring fingers using Orthoglass splint, Ulnar gutter with extension to right hand . applied by myself. Examined by me, post splint application: neurovascular intact, 2+ distal pulses palpable, brisk capillary refill noted, Patient tolerated well, Advised to follow-up with orthopedist KARSTEN. MDM: 07/23 22:47 Medical Screening Exam initiated sp4 07/24 01:48 ED course: EXAM DESCRIPTION: Hand Right 3 View RadLex: XR HAND 3 OR MORE VIEWS RIGHT sp4 CLINICAL HISTORY: 54 years Male, right small finger injury COMPARISON: None. FINDINGS: 3 views of the right hand. There is a displaced avulsion fracture along the dorsal base of the fifth digit distal phalanx. Mild adjacent soft tissue edema. There may be some background degenerative changes at the fifth digit DIP joint with joint space narrowing and bony spurring. Chronic appearing fracture deformities involving the distal radius and ulnar styloid. IMPRESSION: Displaced avulsion fracture along the dorsal base of the fifth digit distal phalanx. . 23:40 Differential diagnosis: dislocation, open fracture, closed fracture, contusion, sp4 abrasion, tendonitis. Data reviewed: vital signs, nurses notes, radiologic studies, plain films. ED course: Patient was placed in ulnar gutter splint to include the right small and ring fingers. Also was given arm sling for comfort. Advised follow-up with orthopedist for avulsion fracture of the base of the right small finger distal phalanx. 07/23 23:09 Order name: Hand Right 3 View XRAY; Complete Time: 23:35 sp4 07/24 01:47 Order name: Sling; Complete Time: 01:55 sp4 07/24 01:47 Order name: Splint - Ulnar Gutter: Wrist and hand splint applied by MD; Complete Time: sp4 01:55 Administered Medications: 00:00 Drug: Gulf Breeze PO 10 mg-325 mg 1 tabs PO once Route: PO; kb3 00:30 Follow up: Response: No adverse reaction; Pain is decreased vc1 00:00 Drug: Ibuprofen PO 800 mg PO once Route: PO; kb3 00:30 Follow up: Response: Marked relief of symptoms; Pain is decreased vc1 01:55 Drug: Lidocaine Infiltration (1 %) 20 ml 20 ml Infiltration once; to bedside {Note: vc1 administered by Dr. Pathak.} Volume: 20 ml; Route: Infiltration; 02:14 Drug: Gulf Breeze PO 10 mg-325 mg 1 tabs PO once Route: PO; vc1 02:14 Follow up: Response: Medication administered at discharge. vc1 02:14 Drug: Methocarbamol PO 1500 mg PO once Route: PO; vc1 02:14 Follow up: Response: Medication administered at discharge. vc1 Disposition Summary: 07/24/24 01:49 Discharge Ordered Problem: new sp4 Symptoms: have improved sp4 Condition: Stable sp4 Diagnosis - Avulsion fracture dorsal base Right fifth digit distal phalanx with displacement sp4 Followup: sp4 - With: Truong Sykes MD - When: 5 - 6 days - Reason: Recheck today's complaints Discharge Instructions: - Discharge Summary Sheet sp4 - Finger Fracture, Adult, [id number] sp4 Forms: - Patient Portal Instructions sp4 Prescriptions: - tramadol 100 mg Oral tablet - take 1 tablet ORAL route every 6 hours PRN pain; 30 tablet; Refills: 0, Product sp4 Selection Permitted - Ibuprofen 800 mg Oral Tablet - take 1 tablet ORAL route every 8 hours As needed take with food; 30 tablet; sp4 Refills: 0, Product Selection Permitted Signatures: Dispatcher [employer] EDGillian David RN RN vc1 Marilin Bowden RN RN kb3 Hakan Pathak MD MD sp4 Corrections: (The following items were deleted from the chart) 07/23 23:24 23:23 PMHx: Unable to Obtain; vc1 vc1
[2024-07-24] MEDS ORDERED: methocarbamoL 750 MG TAB ONE (02:04)
[2024-07-24] MEDS ORDERED: HYDROCODONE/APAP 10/325 TAB ONE (02:05)
[2024-07-24 02:38] VITALS: BP 146/98; TEMP 97.3; O2SAT 96
--- NOTE | 2024-07-24 06:06 | RAD REPORT ---
EXAM DESCRIPTION: Hand Right 3 View RadLex: XR HAND 3 OR MORE VIEWS RIGHT CLINICAL HISTORY: 54 years Male, right small finger injury COMPARISON: None. FINDINGS: 3 views of the right hand. There is a displaced avulsion fracture along the dorsal base of the fifth digit distal phalanx. Mild adjacent soft tissue edema. There may be some background degenerative changes at the fifth digit DIP joint with joint space narrowing and bony spurring. Chronic appearing fracture deformities involving the distal radius and ulnar styloid. IMPRESSION: Displaced avulsion fracture along the dorsal base of the fifth digit distal phalanx. Electronically signed by: Mily Leggett MD 07/24/2024 12:24 AM [facility] Due to temporary technical issues with the [employer] reporting system, reports are being martín d by the in-house radiologist without review as a courtesy to ensure prompt reporting the interpreting radiologist is fully responsible for the content of the report. Transcribed Date/Time: 07/24/2024 6:06 AM
== END 2024-07-24 02:24 | disposition home or self-care (01) ==
LOC: ER 22:29
PROC: 2W3EX1Z Immobilization of Right Hand using Splint (ICD-10-PCS; principal; 2024-07-24)
DX: S62.636A Displaced fracture of distal phalanx of right little finger, initial encounter for closed fracture (principal)
CPT/HCPCS: J2003